=== PATIENT | female | born 1975 | race Caucasian/White ===

== ENCOUNTER 2019-03-22 01:27 | Outpatient (CLI) | payer OTHER, SELFPAY ==
--- NOTE | 2019-03-22 13:09 | DI.MAMMO_ITS ---
EXAM: MG MAMMO SCREENING 60 MIN DUR CLINICAL HISTORY: History of phyllodes tumor, breast cancer screening, Z12.39 TECHNIQUE: Mammograms were interpreted according to the usual protocol including computer analysis w [employer] CAD system, tomosynthesis and C-view imaging. COMPARISON: LEFT BREAST ULTRASOUND from 11/12/2015 Diagnostic Left Mammo from 11/12/2015 SCREENING - 60 MIN DURATION from 09/17/2017 FINDINGS: Breasts are composed of extremely dense fibroglandular tissue, breast density category D. There are m ultiple rounded masses in the left breast which may represent cysts. Cysts were noted on previous ul trasound. There are no suspicious microcalcifications. The patient is status post right mastectomy. IMPRESSION: Ultrasound is recommended for further evaluation of numerous circumscribed masses. BI-RADS Cat 0 - A ssessment Incomplete: Need additional imaging evaluation Breast Density - Category D - Extremely dense
== END 2019-03-22 01:47 ==
PROVIDERS: PCP Family Medicine; Visit Provider Obstetrics & Gynecology Gynecology
DX: Z12.31 Encounter for screening mammogram for malignant neoplasm of breast (principal); N60.12 Diffuse cystic mastopathy of left breast; Z90.11 Acquired absence of right breast and nipple; Z85.3 Personal history of malignant neoplasm of breast; R92.8 Other abnormal and inconclusive findings on diagnostic imaging of breast
CPT/HCPCS: 77063; 77067

== ENCOUNTER 2019-03-24 00:19 | Outpatient (CLI) | payer OTHER, SELFPAY ==
--- NOTE | 2019-03-24 09:24 | DI.US_ITS ---
EXAM: US BREAST LT LIMITED CLINICAL HISTORY: F/U MAMMO, MULTIPLE ROUNDED MASSES LT BREAST, CYSTS NOTED ON PREV US. TECHNIQUE: Ultrasound performed using standard protocol. COMPARISON: LEFT BREAST ULTRASOUND from 11/12/2015 FINDINGS: There are numerous cysts in the left breast, the largest of which measures 2.6 x 1.1 x 2.6 cm and is in the 12 o'clock position, 1 cm from the nipple. No mass is notified. IMPRESSION: There is nothing to suggest a malignancy. Category 2. A follow-up mammogram and if appropriate, ultra sound examination is suggested in 1 year.
== END 2019-03-24 00:39 ==
PROVIDERS: PCP Family Medicine; Visit Provider Obstetrics & Gynecology Gynecology
DX: Z12.31 Encounter for screening mammogram for malignant neoplasm of breast (principal); R92.8 Other abnormal and inconclusive findings on diagnostic imaging of breast; N60.12 Diffuse cystic mastopathy of left breast
CPT/HCPCS: 76642

== ENCOUNTER 2020-03-05 10:38 | Outpatient (REF) | payer OTHER, SELFPAY ==
--- NOTE | 2020-03-05 09:45 | PAPFT_PTH ---
PATIENT: Michelle Tam LOC: [facility] ([facility]) U#:[id number] AGE/SX: 44/F ROOM: RE03/05/[address]: FABIÁN Camilo : 1975 BED: DIS: 03/05/2020 SPEC #: [id number] RECD: 03/05/20 12:52 STATUS: KENYETTA REQ #: [id number] JAMA: 03/05/20 09:[address]: Adelita Gong DEPT: [facility] Cytology RECD BY: Ana Maria Dunne ENTERED: 03/05/20 12:53 SP TYPE: PAPFT OTHR DR: Anisha Yarbrough V Tissues: 1 - CX/ENDOCX FOR PAP SMEARS Procedures: PAP THIN PREP/UVM Screening HPV DNA PROBE Comments: [id number]
== END 2020-03-05 10:58 ==
LOC: LBN 10:38
PROVIDERS: PCP Family Medicine; Visit Provider Nurse Practitioner Family
DX: Z12.4 Encounter for screening for malignant neoplasm of cervix (principal); Z11.51 Encounter for screening for human papillomavirus (HPV); R87.618 Other abnormal cytological findings on specimens from cervix uteri
CPT/HCPCS: 88142; 87624

== ENCOUNTER 2020-03-28 01:42 | Outpatient (CLI) | payer OTHER, SELFPAY ==
--- NOTE | 2020-03-28 | DI.US_ITS ---
EXAM: MG MAMMO SCREENING 60 MIN DUR and U/S breast LT limited CLINICAL HISTORY: breast cancer screening,Z12.39,PERSONAL H/O BREAST CA. TECHNIQUE: Craniocaudal and mediolateral oblique Full Field Digital Mammography views with Computer Aided Diagnosis followed by Tomosynthesis and left breast ultrasound. COMPARISON: US US BREAST LT LIMITED from 03/28/2020 FINDINGS: Mammography/Tomosynthesis: Patient is status post right mastectomy. Masses/Architectural Distortion: There is a subtle area of architectural distortion in the upper left breast seen on the mediolateral oblique view. This was not apparent on the prior examination. Ther e are multiple obscured well-circumscribed lesions in the left breast. These appear stable and are c onsistent with cysts. Microcalcifictions: No suspicious pleomorphic-type are seen. Skin Thickening/Nipple Retraction: None. Left breast US: Echotexture: Normal appearance of the glandular tissue. Shadowing: There is a hypoechoic shadowing lesion at the 12 o'clock position of the left breast 10 cm from the nipple. This appears to correspond to the area of architectural distortion seen mammograph ically. It measures up to 1 cm in diameter. Cyst: There are multiple simple cysts seen within the left breast. Solid lesions: Please see above. Ductal dilation: None. IMPRESSION: 1. Area of architectural distortion corresponding to a 1 cm hypoechoic shadowing lesion at the 12 o'c lock position of the left breast. 2. Biopsy is recommended. 3. Findings were discussed with the patient and her PCP, Adelita Gong NP, on the date of the examin ation. BI-RADS Category 4 - Suspicious Abnormality: Biopsy should be considered Breast Density - Category D - Extremely dense The mammogram demonstrates the patient's breast tissue is dense. Dense breast tissue is very common a nd is not abnormal but dense breast tissue can make it harder to find cancer on a mammogram. Also, de nse breast tissue may increase their breast cancer risk. This information about the result of the [facility] mogram report was provided to the patient to raise their awareness. Use this report when you speak wi th the patient about their risks for breast cancer, which includes their family history. At that time , you may recommend for more screening tests (Ultrasound or MRI) as they might be useful based on the ir risk. A negative radiographic report should not delay biopsy if a dominant or clinically suspicious mass is present. Up to ten percent of cancers are not identified on mammography. A negative report may reinforce clinical impression. Adenosis and dense breasts may obscure an underlying neoplasm. False positive reports average 6 to 10%. Patient will receive a letter notifying them of these results.
== END 2020-03-28 02:02 ==
PROVIDERS: PCP Family Medicine; Visit Provider Nurse Practitioner Family
DX: Z12.39 Encounter for other screening for malignant neoplasm of breast (principal); Z85.3 Personal history of malignant neoplasm of breast; R92.8 Other abnormal and inconclusive findings on diagnostic imaging of breast
CPT/HCPCS: 76642; 77063; 77067

== ENCOUNTER 2020-03-28 02:22 | Outpatient (CLI) | payer OTHER, SELFPAY ==
[2020-03-28 09:37] LABS: Calculated LDL 107 mg/dL (<100); Cholesterol 205 mg/dL (<200); Glucose 104 mg/dL (74-106); HDL Cholesterol 86 mg/dL (40-60); Triglyceride 60 mg/dL (<150)
== END 2020-03-28 02:42 ==
PROVIDERS: PCP Family Medicine; Visit Provider Nurse Practitioner Family
DX: Z13.1 Encounter for screening for diabetes mellitus (principal); Z13.220 Encounter for screening for lipoid disorders
CPT/HCPCS: 36415; 80061; 82947

== ENCOUNTER 2020-04-02 00:48 | Outpatient (CLI) | payer OTHER, SELFPAY ==
--- NOTE | 2020-04-02 07:42 | BREAST_PTH ---
PATIENT: Michelle Tam LOC: [facility] U#:[id number] AGE/SX: 44/F ROOM: RE04/02/[address]: Hortensia Roman MD : 1975 BED: DIS: 04/02/2020 SPEC #: [id number] RECD: 04/02/20 11:46 STATUS: KENYETTA REQ #: [id number] JAMA: 04/02/20 07:[address]: Hortensia Roman DEPT: Surgical Specimen RECD BY: Ana Maria Dunne ENTERED: 04/02/20 11:46 SP TYPE: Breast OTHR DR: Anisha Yarbrough V Tissues: 1 - BREAST BX NEEDLE Procedures: GROSS AND MICRO LEVEL 4 Comments: [id number]
--- NOTE | 2020-04-02 07:50 | DI.US_ITS ---
EXAM: US NEEDLE LOCAL BREAST WO RAD CLINICAL HISTORY: H/O BREAST CA,DENSE BREASTS,LT BREAST LESION 12 OCLOCK. Left Breast. TECHNIQUE: The procedure was performed by Dr. Roman. Site: left 12 oclock 10 cm from the nipple. FINDINGS: Please see procedure note for details. COMPARISON: MG MG MAMMO SCREENING 60 MIN DUR from 03/28/2020 US US BREAST LT LIMITED from 03/28/2020
--- NOTE | 2020-04-02 08:00 | OPPNE_ITS ---
Date of Procedure: April 02, 2020 Pre-op Dx: left Breast Mass Post-op Dx: same Surgeon: Sabine Roman MD Anesthesia: Local anesthesia with 1% Lidocaine Blood loss: 2 cc Specimen: Core needle biopsy Complications: no immediate complications Procedure: After informed consent was obtained the patient was placed in a supine position. US was done of the Breast and the lesion was localized by the US tech. The skin was cleaned with alcohol and infiltrated with the above local anesthetic. The skin was then prepped. An incision was made with an 11 blade. Using a 14 gauge core needle 3 specimens were removed and placed on telfa and placed in formalin. The skin was cleaned and dried and a band aid was applied. The patient tolerated the procedure well and there were no immediate complications.
== END 2020-04-02 01:08 ==
PROVIDERS: PCP Family Medicine; Visit Provider Surgery
DX: R92.0 Mammographic microcalcification found on diagnostic imaging of breast (principal); N60.32 Fibrosclerosis of left breast
CPT/HCPCS: 19083; 88305; 76942

== ENCOUNTER 2020-07-19 02:09 | Outpatient (CLI) | payer OTHER, SELFPAY ==
--- NOTE | 2020-07-19 06:30 | DI.US_ITS ---
EXAM: US BREAST LT COMPLETE CLINICAL HISTORY: 3 MO F/U LT MASS, BX NEGATIVE,H/O RT BREAST CA,N63.20 TECHNIQUE: Ultrasound right breast performed using standard protocol. COMPARISON: US US BREAST LT LIMITED from 03/28/2020 US US NEEDLE LOCAL BREAST WO RAD from 04/02/2020 US US NEEDLE LOCAL BREAST WO RAD from 04/02/2020 FINDINGS: All 4 quadrants of the left breast were evaluated sonographically. There are numerous cysts througho ut the breast. The largest cyst is at the 12 o'clock position of the left breast and measures 4.5 x 2.9 x 1.5 cm. There is a 1.2 x 0.8 x 1.2 cm complicated cyst at the 9 o'clock position of the left b reast 1 cm from the nipple. This cyst shows thin croft with low level internal echoes. There appear s to be a fluid fluid level. No solid component or internal vascularity is seen. The area of biopsy in the 12 o'clock position of the left breast 10 cm from the nipple was evaluated. The area of conc zamzam is less prominent compared to the prior examination. No definite discrete mass persists. IMPRESSION: The area of previous biopsy is less prominent on the current examination without definite sonographic ally discrete mass. Multiple breast cysts including a complicated cyst at the 9 o'clock position of the left breast. DATA REPOSITORY:
== END 2020-07-19 02:10 | disposition home or self-care (01) ==
LOC: DI 02:09
PROVIDERS: PCP Family Medicine; Visit Provider Surgery
DX: N60.02 Solitary cyst of left breast (principal); Z85.3 Personal history of malignant neoplasm of breast
CPT/HCPCS: 76642

== ENCOUNTER → 2021-12-23 01:48 | Outpatient (CLI) | payer OTHER, SELFPAY ==
--- NOTE | 2021-12-23 09:45 | DI.MAMMO_ITS ---
Exam(s) MG MAMMO SCREENING 60 MIN DUR EXAM: MG MAMMO SCREENING 60 MIN DUR CLINICAL HISTORY: breast cancer screening Z12.39 TECHNIQUE: Bilateral full field digital CC and MLO mammographic images were obtained with 3D tomosyn thesis and utilizing computer aided detection (CAD). COMPARISON: Available for comparison. FINDINGS: The patient is status post right mastectomy. Masses/Architectural Distortion: There again seen stable multiple opacities within the left breast. Microcalcifications: No suspicious pleomorphic-type are seen. There are stable calcifications in the left breast. Skin Thickening/Nipple Retraction: None. IMPRESSION: 1. No significant interval change with no specific features of malignancy noted. 2. Unless there is more urgent need, screening mammography is recommended, as per [place] [employer] guidelines. BI-RADS Category 2 - Benign Findings Breast Density - Category D - Extremely dense Breast density category C or D implies that the patient has dense breast tissue. Dense breast tissue is very common and is not abnormal but dense breast tissue can make it harder to find cancer on a ma mmogram. Also, dense breast tissue may increase their breast cancer risk. This information about the result of the mammogram report was provided to the patient to raise their awareness. Use this report when you speak with the patient about their risks for breast cancer, which includes their family hist ory. At that time, you may recommend for more screening tests (Ultrasound or MRI) as they might be us eful based on their risk. A negative radiographic report should not delay biopsy if a dominant or clinically suspicious mass is present. Up to ten percent of cancers are not identified on mammography. A negative report may reinforce clinical impression. Adenosis and dense breasts may obscure an underlying neoplasm. False positive reports average 6 to 10%. Patient will receive a letter notifying them of these results.
== END ==
PROVIDERS: PCP Family Medicine; Visit Provider Nurse Practitioner Family
DX: Z85.3 Personal history of malignant neoplasm of breast; Z90.11 Acquired absence of right breast and nipple; Z12.31 Encounter for screening mammogram for malignant neoplasm of breast
CPT/HCPCS: 77063; 77067

== ENCOUNTER 2022-07-14 17:23 | Outpatient (REF) | payer OTHER, SELFPAY ==
[2022-07-16 14:12] LABS: Chlamydia Result Negative (Negative); GC Result Negative (Negative)
== END 2022-07-14 17:24 | disposition home or self-care (01) ==
LOC: LBN 17:23
PROVIDERS: PCP Family Medicine; Visit Provider Obstetrics & Gynecology
DX: Z11.3 Encounter for screening for infections with a predominantly sexual mode of transmission (principal)
CPT/HCPCS: 87491; 87591

== ENCOUNTER 2022-12-28 03:33 | Outpatient (CLI) | payer OTHER, SELFPAY ==
--- NOTE | 2022-12-28 07:45 | DI.MAMMO_ITS ---
Exam(s) MG MAMMO SCREENING 60 MIN DUR EXAM: MG MAMMO SCREENING 60 MIN DUR CLINICAL HISTORY: breast cancer screening,DENSE BREASTS,H/O MALIGNANT PLOOIDES TUMOR OF BREAS. TECHNIQUE: Bilateral full field digital CC and MLO mammographic images were obtained with 3D tomosyn thesis and utilizing computer aided detection (CAD). COMPARISON: There are multiple priors with the most recent from 23 December 2021 FINDINGS: Masses/Architectural Distortion: None seen. Stable areas of nodularity. Biopsy marker clip again not ed in inferior nodule. Microcalcifications: No suspicious pleomorphic-type are seen. Scattered coarse, benign-appearing calc ifications. Skin Thickening/Nipple Retraction: None. IMPRESSION: 1. No significant interval change with no specific features of malignancy noted. 2. Unless there is more urgent need, annual screening mammography is recommended, as per [place] [employer] guidelines. BI-RADS Cat 2 - Benign Findings Breast Density - Category D - extremely dense Breast Density Category D: The mammogram demonstrates the patient's breast tissue is dense. Dense topher ast tissue is very common and is not abnormal but dense breast tissue can make it harder to find canc er on a mammogram. Also, dense breast tissue may increase their breast cancer risk. This information about the result of the mammogram report was provided to the patient to raise their awareness. Use th is report when you speak with the patient about their risks for breast cancer, which includes their f amily history. At that time, you may recommend for more screening tests (Ultrasound or MRI) as they m ight be useful based on their risk. A negative radiographic report should not delay biopsy if a dominant or clinically suspicious mass is present. Up to ten percent of cancers are not identified on mammography. A negative report may reinforce clinical impression. Adenosis and dense breasts may obscure an underlying neoplasm. False positive reports average 6 to 10%.
== END 2022-12-28 03:53 ==
LOC: DI 03:33
PROVIDERS: PCP Family Medicine; Visit Provider Obstetrics & Gynecology
DX: Z12.31 Encounter for screening mammogram for malignant neoplasm of breast (principal); R92.2 Inconclusive mammogram
CPT/HCPCS: 77063; 77067

== ENCOUNTER 2023-07-09 10:23 | Day surgery (SDC) | payer OTHER, SELFPAY ==
--- NOTE | 2023-07-08 16:20 | PDOC.DSDIS_ITS ---
Date of service: 07/09/23 Time of Service: 13:16 Discharge Plan Disposition Patient Disposition: Home Condition: Good Discharge Details Reason For Visit: Screening colonoscopy Attending Provider: Evin Sanchez Primary Care Provider: Anisha Yarbrough V Home Meds and New Rx's Prescriptions: Continued Mirena 21 mcg/24 hours (8 yrs) 52 mg intrauterine device 1 device intrauterine ONCE Qty: 1 0RF Rx Instructions: as a single dose Discontinued polyethylene glycol 3350 17 gram/dose powder 17 g PO ONCE Qty: 238 0RF Rx Instructions: Take per colonoscopy instructions provided by ordering providers office bisacodyl [Dulcolax (bisacodyl)] 5 mg tablet,delayed release (DR/EC) 5 mg PO ONCE Qty: 4 0RF Rx Instructions: Take per colonoscopy instructions provided by ordering providers office Discharge Instructions Instructions: Diverticulosis (GEN), Colorectal Polyps (GEN), Diverticulosis Diet (GEN) Additional Instructions: Michelle, we were able to complete your colonoscopy today without any difficulty. Hopefully was comfortable. I did find 1 polyp, which I removed completely. Incidentally, he also have just a tiny bit of diverticulosis. D iverticula are little weak spots in the colon wall that typically accumulate as we age. They can become infected and inflamed, and when that happens, patients usually have pretty severe pain on the left side of their abdomen, or lower across the middle. During these times, patient should probably be treated with antibiotics. Hopefully, yours never bother you. Compared to most patients, you have a very low number. I have attached a little bit of information here regarding diverticulosis as well as colon and rectal polyps. Once I have the pathology results from the polyp removal, I will be in touch with my recommendations for the timing of your next colonoscopy. If you have any questions in the meantime, please do not hesitate to call at any point. 1. If tolerated, consume a soft, low fiber diet for 1-2 days. 2[address] Do not drive, drink alcohol, operate machinery, make critical decisions, or do activities that require coordination or balance for 24 hours. 3. Because air was put into your colon during the procedure, expelling air from your rectum (passing gas or farting) is normal. 4. You may not have a bowel movement for 1-3 days because of the colonoscopy prep. This is normal. 5. Go directly to the emergency room if you notice any of the following: Develop chills (warm to touch), or if you have a thermometer and your temperature is above 101 Difficulty breathing or difficultly swallowing Persistent vomiting Severe abdominal pain, other than gas cramps Severe chest pain Black, tarry stools Any bleeding ? exceeding one tablespoon 6. Call your physician if the site where your intravenous was started becomes red, swollen, painful, and warm to touch. 7. Your physician has reviewed your pre-procedure medications. Please continue to take those medications as previously ordered. You will be given specific information/education regarding any changes to your medications before leaving. Stand Alone Forms: Anesthesia Discharge Inst., Bijan Bob (DSU) Activity:: Activity as Tolerated Diet:: As Tolerated Discharge Orders Discharge Orders: Discharge Order (Routine); Ordered 07/08/23 Ordered By: Evin Sanchez DS: Diagnosis Discharge Diagnosis (1) Colon cancer screening: Status: Acute Asessment and Plan: Follow-up on polypectomy results
--- NOTE | 2023-07-08 16:21 | COLE_ITS ---
Date of service: 07/09/23 Time of Service: 13:26 Colonoscopy Report Date of procedure: 07/09/23 Pre-op diagnosis general: Screening colonoscopy Post-op diagnosis procedure note: other (Diverticulosis, colon polyp) Procedure: Colonoscopy with polypectomy Surgeon: Evin Sanchez Anesthesia Type: General:No Airway Estimated blood loss (mL): 5 Pathology: other (0.25 cm polyp at 50 cm from the anus) Complications: None Disposition: same day Indications: Michelle is a 47-year-old woman who needs her for screening colonoscopy Prep: Miralax/Dulcolax Procedure Start Time: 12:31 Procedure End Time: 12:51 Retraction Time: 6 Findings: Occasional sigmoid diverticula. 0.25 cm flat polyp at 50 cm Procedure Description: After the induction of monitored anesthetic care, and with the patient in left lateral decubitus position, I began by performing an external anorectal exam.? Perineum and skin were normal, as was the anal verge.? There was no evidence of external hemorrhoids.? Next, I performed a digital rectal exam.? I did not appr eciate any abnormal findings.? Next, I advanced a colonoscope into the rectal vault.? I performed retroflexion.? This appeared normal.? Using insufflation, I then advanced the colonoscope beyond the rectal folds and into the sigmoid colon before advancing towards the cecum.? The quality of the prep was outstanding.? There were just a few diverticula in the sigmoid colon. The scope was noted to be in the cecum by identification of the ileocecal valve and appendiceal orifice.? I then began withdrawing the colonoscope using repeated irrigation as necessary for full evaluation of the colonic mucosa. Around 50 cm from the anal verge I identified a 0.25 cm polyp. ?It appeared flat in character. ?I was able to remove this with a cold forcep polypectomy. ?I examined the site, and there was minimal bleeding. ?Once this was completed, I continued to withdraw the scope and examine the remainder of the colonic mucosa.?Once the scope was withdrawn to the level of the rectum, great care was taken to examine portions of the rectal folds.? Finally, the scope was withdrawn and the patient was brought to the same-day surgery recovery unit as the anesthetic wore off. ?The findings and instructions were shared with the patient prior to discharge. [place] Bowel Prep [place] Bowel Prep Right Colon: 3 Left Colon: 3 Transverse Colon: 3 Total Score: 9
[2023-07-09 10:48] VITALS: BP 135/85; PULSE 100; RESP 18; TEMP 36.9; O2SAT 100
[2023-07-09 11:07] VITALS: BP 142/85; PULSE 92; RESP 16; O2SAT 98
[2023-07-09] MEDS: Lactated Ringers 1,000 ML 80 ML IV (11:29)
--- NOTE | 2023-07-09 12:13 | W.ANESPRE ---
General Info Date of Service Date Performed: 07/09/23 Height: 5 ft 9 in Weight: 67.4 kg Body Mass Index (BMI): 21.9 Surgical Procedure: Operation Date: 07/09/23 10:50 Proposed Procedure Side Surgeon aletha Sanchez MD Meds Allergies and Home Medications Allergies Allergy/AdvReac Type Severity Reaction Status Date / Time Penicillins Allergy Verified 07/09/23 10:46 Home Medication Medication Instructions Recorded levonorgestrel 21 mcg/24 hours (8 1 device intrauterine ONCE #1 ea 08/10/22 yrs) 52 mg intrauterine device (Mirena) Current Visit Medications: Current Medications Generic Name Dose Route Start Last Admin Trade Name Freq PRN Reason Stop Dose Admin Hyoscyamine Sulfate 0.125 mg 07/08/23 16:22 Hyoscyamine 0.125 Mg Sl/Oral/Chew SL 08/07/23 16:21 DIRECTED PRN Ringer's Solution 1,000 mls @ 80 mls/hr 07/09/23 06:00 07/09/23 11:29 IV 07/09/23 23:59 80 mls/hr INFUSION EMMY Administration IV Miscellaneous Supplies 1 each 07/09/23 06:00 Iv Access IV 07/09/23 23:59 DIRECTED EMMY Ondansetron HCl 4 mg 07/08/23 16:22 Ondansetron 4 Mg/2 Ml Vial IVP 08/07/23 16:21 Q4H PRN PRN Nausea / Vomiting Sodium Chloride 0 ml 07/09/23 06:00 Normal Saline Flush 10 Ml Syr IV 07/09/23 23:59 PRN PRN Sodium Chloride 0 ml 07/09/23 06:00 Normal Saline 10 Ml Vial IJ 07/09/23 23:59 DIRECTED PRN Sterile Water 0 ml 07/09/23 06:00 Water,Injection,Sterile 10 Ml Vial IJ 07/09/23 23:59 DIRECTED PRN PFSH Active Problems Active Problems: Problem Status Onset Code Rosacea L71.9 Colon cancer screening Z12.11 Food allergy Z91.018 Dense breasts R92.2 Migraine headache with aura G43.109 IUD (intrauterine device) in place Z97.5 Medical History Medical History Anxiety feels stressed about job. Glaucoma H/O malignant phylloides tumor of breast 2001. S/P R mastectomy with silicon breast implant. No Chemo, no XRT. History of hypertension during and PP. Off of Lisinopril and controlling HTN with increased activity. Multiple nevi sees Dr Doty. Benign. Skin lesion of breast (09/16/17) L breast biopsy. Surgical History Surgical History Breast, Mastectomy (~2001) R breast with silicon implant. Had L breast reduction for symmetry with R reconstructed breast. Tobacco Smoking/Tobacco Use Status: Never Second hand exposure: Yes Alcohol Alcohol Intake: current Alcohol intake frequency: a few times a week Alcohol type: beer Substance Use Substance use: Never Substance use type: does not use Prental History History 1 Para Hx # Term Pregnancies 1 Multiple births Hx # Pregnancies Ectopic pregnancies AB induced Hx Number of Living Children AB spontaneous Vital Signs and Lab Results Vital Signs Most Recent Vital Signs in EMR: Most Recent Vital Signs Temp Pulse Resp BP Pulse Ox 36.9 C 92 H 16 142/85 H 98 07/09/23 10:48 07/09/23 11:07 07/09/23 11:07 07/09/23 11:07 07/09/23 11:07 Point of Care Results Point of Care Results: POC- Test(urine) Negative 07/09/23 10:59 Lab Results Blood Type / Crossmatch: No Data to Display Complete Blood Count: No Data to Display Complete Metabolic Panel: No Data to Display Liver Function Panel: No Data to Display Coagulation Panel: No Data to Display Cardiac Panel: No Data to Display Arterial Blood Gas: No Data to Display Venous Blood Gas: No Data to Display Pancreas Panel: No Data to Display Thyroid Panel: No Data to Display Infectious Disease: No Data to Display Blood Cultures: No Data to Display Toxicology Panel: No Data to Display Panel: No Data to Display Anesthesia Assessment and Plan Anesthesia History Personal History: No History of Anesthesia Complications Family History: No Family History of Anesthesia Complications Exercise Tolerance Exercise Tolerance: Metabolic Equivalents>4 Pertinent Negatives Pertinent Negatives: No Symptoms of GERD, No Major Cardiovascular Symptoms or Complaints and No Major Pulmonary Symptoms or Complaints Cardiac & Pulmonary Exam Cardiac Exam: Normal S1/S2 Heart Sounds Pulmonary Exam: Clear Bilateral Breath Sounds Implantable Cardiac Device Does patient have a Pacemaker or an ICD?: No Airway Exam Known Difficult Airway: No Mallampati Class: 1 Mouth Opening: Normal (> 3cm) Thyromental Distance: Greater than 3 cm Neck Range of Motion: Full ROM Neck Circumference: Normal Teeth Condition: Normal Dentition ASA Classification ASA Score: ASA 2 Emergency Case?: No NPO Status NPO Status: NPO Clears >2 hours, Solids >8 hours Status Status: Negative HCG Anesthesia Plan Resuscitation Status: Full Code Anesthesia Technique: General Anesthesia Airway Planned: Natural Airway Monitors Used: Standard Monitors
[2023-07-09 12:15] VITALS: BMI 21.9
--- NOTE | 2023-07-09 12:34 | BOWEL_PTH ---
PATIENT: Michelle Tam LOC: [facility] U#:[id number] AGE/SX: 47/F ROOM: RE07/09/[address]: Evin Sanchez MD : 1975 BED: DIS: 07/09/2023 SPEC #: [id number] RECD: 07/09/23 17:20 STATUS: KENYETTA REQ #: [id number] JAMA: 07/09/23 12:[address]: Evin Sanchez DEPT: Surgical Specimen RECD BY: Ana Maria Dunne ENTERED: 07/09/23 17:21 SP TYPE: Bowel OTHR DR: Anisha Yarbrough V Tissues: 1 - BIOPSY BOWEL Procedures: GROSS AND MICRO LEVEL 4 Comments: [id number]
[2023-07-09 13:00] VITALS: BP 78/68; PULSE 80; RESP 16; TEMP 36.5; O2SAT 98
[2023-07-09 13:19] VITALS: BP 109/75; PULSE 85; RESP 16; TEMP 36.5; O2SAT 100
[2023-07-09 13:26] VITALS: BP 119/71; PULSE 79; RESP 16; TEMP 36.5; O2SAT 100
--- NOTE | 2023-07-09 14:05 | W.ANESPOSTOP ---
Postoperative Evaluation Date, Time and Location Date Performed: 07/09/23 Time Performed: 13:45 Patient Location: Day Surgery Unit Vital Signs Most Recent Imported Vital Signs: Most Recent Vital Signs Temp Pulse Resp BP Pulse Ox 36.5 C 79 16 119/71 100 07/09/23 13:26 07/09/23 13:26 07/09/23 13:07/09/23 13:07/09/23 13:26 Pain Score Most Recent Pain Score: Most Recent Pain Score Pain Level 0 07/09/23 13:26 Assessment Mental Status: Awake (Alert & Oriented to Patient Baseline) Airway and Respiratory Function: Patent airway with normal (patient baseline) respiratory exam Cardiovascular Function: Hemodynamically Stable Hydration Status: Adequately Hydrated Nausea & Vomiting: No Nausea or Vomiting Pain: Pt. Denies Any Pain Peripheral Nerve Block: Patient did not receive a nerve block
== END 2023-07-09 13:55 | disposition home or self-care (01) ==
LOC: SUR 10:24
PROVIDERS: PCP Family Medicine; Visit Provider Surgery
PROC: 0DJD8ZZ Inspection of Lower Intestinal Tract, Via Natural or Artificial Opening Endoscopic (ICD-10-PCS; CPT 45378; principal; 2023-07-09 10:45)
DX: Z12.11 Encounter for screening for malignant neoplasm of colon (principal); D12.5 Benign neoplasm of sigmoid colon; K57.30 Diverticulosis of large intestine without perforation or abscess without bleeding
CPT/HCPCS: 45380; 81025; 88305; J2704

== ENCOUNTER → 2023-12-31 00:22 | Outpatient (CLI) | payer OTHER, SELFPAY ==
--- NOTE | 2023-12-31 | DI.US_ITS ---
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 TECHNIQUE: LEFT BREAST full field digital CC and MLO mammographic images were obtained with 3D tomos ynthesis and utilizing computer aided detection (CAD). Also performed spot compression view of nodular density in left breast. COMPLETE LEFT BREAST ULTRASOUND performed including all 4 quadrants well as the retroareolar region. COMPARISON: Prior mammograms were reviewed. Prior ultrasound reviewed 12/05/2020. This patient has had prior right mastectomy for malignant phyllodes tumor. She also underwent ultras ound-guided core biopsy of a finding at the peripheral aspect 12 o'clock position of the left breast which was negative for malignancy. FINDINGS: LEFT BREAST MAMMOGRAM: Fibroglandular tissue is again noted be dense and there are nodular densities again noted. Spot comp ression view performed and reveals a dominant nodular densities approximately 12 o'clock position, me asuring approximately 4.9 x 4 cm on the mammogram. There benign-appearing microcalcifications in left breast noted. There are no malignant-appearing microcalcification groups. There is no significant new architectural distortion nor skin thickening-retraction. Proceeded with ultrasound.. COMPLETE LEFT BREAST ULTRASOUND: There are multiple cysts in the left breast, with the dominant cyst located at 12 o'clock position wi th maximum measurement 5 cm, this corresponding to the finding on the mammogram. This is a simple cy st without solid internal components. Smaller cysts and microcysts are seen at the 1 o'clock positio n. Also at 1 o'clock position there is a oval 8 x 6 mm nodule with increased through transmission and so me internal echoes, probably hemorrhagic cyst. Multiple microcysts are seen at 2 o'clock position At the 3 o'clock position there is a small 4 x 3 mm finding which is probably a hemorrhagic microcyst . At the 5 o'clock position there is a 1.6 cm cyst. At the 6 o'clock position there is a lobulated wider than taller solid nodule which exhibits maximum measurement 2 cm by 0.7 cm and is probably a fibroadenoma. This appears to have slightly increased i n size from prior measurement of 2020. At the 7 o'clock position and 8 o'clock position there are microcysts. At the 9 o'clock position there is a 7 x 6 mm finding which is probably a hemorrhagic microcyst. Scanning of the left axilla is negative for significant adenopathy. IMPRESSION: In addition to multiple cysts ranging up to 5 cm size (12 o'clock position) there also other less sim ple findings including what is probably a fibroadenoma at the 6 o'clock position measuring 2.0 x 0.7 cm, a probable hemorrhagic microcysts at 3 o'clock position, and another finding at 9 o'clock positio n which is probably also hemorrhagic microcyst. Also 8 x 6 mm nodule at the 1 o'clock position, poss ibly hemorrhagic microcyst versus fibroadenoma. Appropriate follow-up, as discussed by myself with the patient today, is repeat left breast ultrasoun d in 6 months to ensure stability of the findings at the 6 o'clock position, 1 o'clock position, 3 o' clock position, and 9 o'clock position These findings are relatively hidden subjacent to her dense fibroglandular tissue on mammography. BI-RADS Category 3 - 6 month - Probably Benign Finding: Recommend follow-up mammography in 6 months Breast Density - Category C - Heterogeneously dense Breast density Category C or D implies that the patient has dense breast tissue. Dense breast tissue can make it harder to find cancer on a mammogram. Dense breast tissue is also associated with an incr eased risk of breast cancer. This information about the result of the mammogram report was provided to the patient to raise their awareness. Use this report when you speak with the patient about their risks for breast cancer, which includes their family history. At that time, you may recommend additional screening tests (Ultrasoun d or MRI) as these tests may add significant information. A negative radiographic report should not delay biopsy if a dominant or clinically suspicious mass is present. Up to ten percent of cancers are not identified on mammography. A negative report may reinforce clinical impression. Adenosis and dense breasts may obscure an underlying neoplasm. False positive reports average 6 to 10%. Patient will receive a letter notifying them of these results.
--- OUTSIDE RECORDS SUMMARY | 2023-12-31 00:23 | XMS_ITS | Encounter Summary ---
[facility] [place] [address] Care Team Providers Care Street Contractor Name Role Phone Vernon Bettina Hogan APRN Primary Care Provider [phone] Encounter Details Date Type Department Care Team (Late st Contact Info) Description 06/24/2021 11:00 AM EST Office Visit Dermatology at [address] [address] Robby Doty MD [address] [facility] [place], [place] [id number] Rosacea; Nevus; Seborrheic keratosis Social History Tobacco Use Types Packs/Day Years Used Date Smoking Tobacco: Never Assessed Sex and Gender Information Value Date Recorded Sex Assigned at Not on file Gender Identity Not on file Sexual Orientation Not on file documented as of this encounter Progress Notes * Robby Doty MD - 06/24/2021 11:00 AM EST Problem: Skin checkup Michelle follows up after last being seen some 5.5 years ago. She has been doing well. She is concerned about some facial rosacea monitor for general skin checkup. Physical examination reveals a pleasant 45-year-old woman who has a benign examination of the face the neck the chest back hands arms forearms thighs and calves. She has an irritated nevus on the midcentral back underneath her bra strap. She is an irritated seborrheic keratosis on her right upper flank. She is some patchy residual form erythema of the bilateral malar cheeks a little bit on her chin and forehead. She does not have any papular rosacea. Assessment and plan: Benign skin examination 1. Patient reassured about her benign skin examination 2. Return to clinic as needed Irritated seborrheic keratosis right flank 1. Could consider LN2 for removal of this Irritated nevus mid central back 1. After obtaining informed patient consent, the site was anesthetized and a shave biopsy was performed. 2. Triple antibiotic ointment and bandage placed. 3. Wound care instructions and supplies given 4. We will notify patient of her biopsy results in 1 week. Rosacea 1. Patient has tried MetroGel in the past without benefit and in fact it seemed to irritate her skin and make it worse 2. She likes Aquaphor topically, and I would recommend a trial of vitamin C serum applying twice daily to help her with this. She knows this will be an ongoing treatment. 3. Continue her sensitive skin care precautions she follows because of her rosacea. She tries to avoid sugar which seems to make it worse. documented in this encounter Plan of Treatment Not on file documented as of this encounter Visit Diagnoses Diagnosis Rosacea Nevus Benign neoplasm of skin, site unspecified Seborrheic keratosis Other seborrheic keratosis documented in this encounter Care Teams Street Contractor Relationship Specialty Start Date End Date Bettina Junior APRN [address] [place] [address] PCP - General 05/06/10 07/14/22 documented as of this encounter
--- OUTSIDE RECORDS SUMMARY | 2023-12-31 00:23 | XMS_ITS | Encounter Summary ---
[place] [address] Care Team Providers Care Fork Lift Technician Name Role Phone Bettina Junior APRN Primary Care Provider [phone] Encounter Details Date Type Department Care Team (Late st Contact Info) Description 12/18/2020 Telephone Hematology [place] [address] Hazel Brandt Social History Tobacco Use Types Packs/Day Years Used Date Smoking Tobacco: Never Assessed Sex and Gender Information Value Date Recorded Sex Assigned at Not on file Gender Identity Not on file Sexual Orientation Not on file documented as of this encounter Miscellaneous Notes * Telephone Encounter - Hazel Brandt - 12/18/2020 8:00 AM EDT Michelle Tam 1975 [id number] Referring provider: Hortensia Roman Date of Referral: 12/13/20 Please review outside breast imaging dated: 12/05/20 Reason for exam and clinical history:left breast cyst vs fibroadenoma Category:4 Questions to be answered:bx More imaging Sending Institution: [facility] Patient would like treatment at:[facility] [place] Call pt at: Mobile Not on file. documented in this encounter Plan of Treatment Not on file documented as of this encounter Visit Diagnoses Not on filedocumented in this encounter Care Teams Fork Lift Technician Relationship Specialty Start Date End Date Bettina Junior APRN [address] [place] [address] PCP - General 05/06/10 07/14/22 documented as of this encounter
--- OUTSIDE RECORDS SUMMARY | 2023-12-31 00:23 | XMS_ITS | Encounter Summary ---
[place] [address] Care Team Providers Care Assembly Press Operator Name Role Phone Bettina Junior APRN Primary Care Provider [phone] Reason for Visit * (Routine) - Closed Specialty Diagnoses / Procedures Referred By Contac t Referred To Contact Radiology Diagnoses Left breast mass Procedures Request for 2nd read Mammo Sabine Roman MD [address] [place] [address] Referral ID Status Reason Start Date Expiration Date Visits Re quested Visits Authorized [id number] Closed 12/18/2020 12/18/2021 1 1 Encounter Details Date Type Department Care Team (Latest Contact Info) Description 12/18/2020 8:45 AM EDT Ancillary Procedure [place] [address] Sabine Roman MD [address] [place], [place] [id number] Left breast mass Social History Tobacco Use Types Packs/Day Years Used Date Smoking Tobacco: Never Assessed Sex and Gender Information Value Date Recorded Sex Assigned at Not on file Gender Identity Not on file Sexual Orientation Not on file documented as of this encounter Plan of Treatment Not on file documented as of this encounter Procedures Procedure Name Priority Date/Time Associated Diagnosis Comments REQUEST FOR 2ND READ MAMMO Routine 12/18/2020 8:44 AM EDT Left breast mass documented in this encounter Results * Request for 2nd read Mammo (12/18/2020 8:44 AM EDT) Anatomical Region Laterality Modality SO Impressions 12/18/2020 9:14 AM EDT Agree with recommendation for ultrasound-guided core biopsy of a previously undocumented new solid mass 1.6 cm maximal dimension left breast 4:00 radian 3 cm from the nipple. Our facility will coordinate this follow-up with the patient. BI-RADS Category 4: Suspicious Finding - Biopsy Should Be Considered Please note: The interpretation of the [facility] Breast Imaging Radiologist subspecialist may differ from the original radiologist's interpretation. This is usually not due to a deficiency of the original interpreting radiologist, rather due to the greater skill level afforded by sub-specialization in the field and/or reasonable variations in interpretations. If you have a concern regarding the [facility] interpretation you may contact the [facility] Breast Painter Assistant Office at . Thank you for letting us participate in the care of this patient. ??If you are a health care provider and have any questions regarding this report, please contact the number below. ??For patients who have questions please contact the health career development director that requested your imaging first. ? Narrative 12/18/2020 9:14 AM EDT INTERPRETATION OF OUTSIDE BREAST IMAGING I have been asked to consult on this patient by Dr. Sabine Roman because he/she believes a review of this study may change or alter the care of this patient. STUDIES FROM: [facility] DATES: 12/06/2019 left breast ultrasound CLINICAL HISTORY: LEFT BREAST CYST VS FIBROADENOMA. ? BX ? MORE IMAGING; Sending Institution [facility]; Date of exam [id number]; I believe a reinterpretation of this exam may alter care of Patient. Yes; LEFT BREAST CYST VS FIBROADENOMA. The ultrasound report provides a history of right mastectomy for phyllodes tumor. Palpable lump at the 12:00 radian. Instead of a directed ultrasound a whole breast ultrasound was performed. COMPARISONS: 07/19/2019, 03/28/2020, 04/02/2020, 03/22/2020, 03/24/2020, 09/17/2017, 11/12/2015 FINDINGS: Please note: Breast ultrasound is cluster bore operator dependent. Complete assessment of the breast tissue is not possible through static images or cine loops. Because breast ultrasound is a dynamic process the interpretive value of outside images is limited. There is a sonographically benign 3.2 cm benign simple cyst documented at the left breast 12:00 radian corresponding to the palpable lump. Additionally, multiple sonographically benign cysts are identified throughout the breast. There is an exception, however, where there is a homogeneously hypoechoic parallel mass with slightly microlobulated margins at the left breast 4:00 radian 3 cm from the nipple measuring 1.6 cm in maximal diameter. This does not appear to be documented on any prior examinations and is considered a new finding sonographically. Procedure Note aLcy Romero MD - 12/18/2020 INTERPRETATION OF OUTSIDE BREAST IMAGING I have been asked to consult on this patient by Dr. Sabine Thompsonause he/she believes a review of this study may change or alter the care ofthis patient. STUDIES FROM: [facility] DATES: 12/06/2019 left breast ultrasound CLINICAL HISTORY: LEFT BREAST CYST VS FIBROADENOMA. ? BX ? MORE IMAGING;Sending Institution [facility]; Date of exam [id number]; Ibelieve a reinterpretation of this exam may alter care of Patient. Yes; LEFTBREAST CYST VS FIBROADENOMA. The ultrasound report provides a history of right mastectomy forphyllodes tumor. Palpable lump at the 12:00 radian. Instead of a directed ultrasounda whole breast ultrasound was performed. COMPARISONS: 07/19/2019, 03/28/2020, 04/02/2020, 03/22/2020, 03/24/2020, 09/17/2017,11/12/2015 FINDINGS: Please note: Breast ultrasound is cluster bore operator dependent. Complete assessmentof the breast tissue is not possible through static images or cine loops.Because breast ultrasound is a dynamic process the interpretive value of outsideimages is limited. There is a sonographically benign 3.2 cm benign simple cyst documented atthe left breast 12:00 radian corresponding to the palpable lump.Additionally, multiple sonographically benign cysts are identified throughout thebreast. There is an exception, however, where there is a homogeneouslyhypoechoic parallel mass with slightly microlobulated margins at the left breast4:00 radian 3 cm from the nipple measuring 1.6 cm in maximal diameter. Thisdoes not appear to be documented on any prior examinations and is considered anew finding sonographically. IMPRESSION Agree with recommendation for ultrasound-guided core biopsy of apreviously undocumented new solid mass 1.6 cm maximal dimension left breast 4:00radian 3 cm from the nipple. Our facility will coordinate this follow-up with the patient. BI-RADS Category 4: Suspicious Finding - Biopsy Should Be Considered Please note: The interpretation of the [facility] BreastImaging Radiologist subspecialist may differ from the original radiologist's interpretation. This is usually not due to a deficiency of the original interpreting radiologist, rather due to the greater skill level affordedby sub-specialization in the field and/or reasonable variations ininterpretations. If you have a concern regarding the [facility] interpretation [facility] at . Thank you for letting us participate in the care of this patient. If youare a health care provider and have any questions regarding this report,please contact the number below. For patients who have questions please contactthe health career development director that requested your imaging first. Sabine Valiente MD IMG OUTSIDE I NTERPRETATION ORDERABLES documented in this encounter Visit Diagnoses Diagnosis Left breast mass Lump or mass in breast documented in this encounter Care Teams Assembly Press Operator Relationship Specialty Start Date End Date Bettina Junior APRN [address] [place] [address] PCP - General 05/06/10 07/14/22 documented as of this encounter
--- OUTSIDE RECORDS SUMMARY | 2023-12-31 00:23 | XMS_ITS | Encounter Summary ---
[place] [address] Care Team Providers Care Bladder Trimmer Name Role Phone Anisha Yarbrough MD Primary Care Provider [phone] Reason for Referral * Allergy Testing (Routine) - Closed Specialty Diagnoses / Procedures Referred By Contuma t Referred To Contact Allergy Diagnoses Allergy to other foods Fabienne Beach DO [address] [place] [address] [place] [address] [facility] [address] [place] [address] Referral ID Status Reason Start Date Expiration Date V isits Requested Visits Authorized [id number] Closed Consult, Test & Treat PCP Updated and/or Approved 07/15/2022 07/15/2023 6 6 Encounter Details Date Type Department Care Team (Late st Contact Info) Description 07/15/2022 Transcribe Orders eDH Incoming Referrals [phone] Fabienne Beach DO [address] [place] [address] [address] [place] [phone] Allergy to other foods Social History Tobacco Use Types Packs/Day Years Used Date Smoking Tobacco: Never Assessed Sex and Gender Information Value Date Recorded Sex Assigned at Not on file Gender Identity Not on file Sexual Orientation Not on file documented as of this encounter Plan of Treatment Scheduled Referrals Name Type Priority Associated Diagnoses Orde r Schedule Referral to Allergy Outpatient Referral Routine Allergy to other foods Ordered: 07/15/2022 documented as of this encounter Visit Diagnoses Diagnosis Allergy to other foods documented in this encounter Care Teams Bladder Trimmer Relationship Specialty Start Date End Date Anisha Yarbrough MD [address] [place] [address] PCP - General Family Medicine 07/15/22 documented as of this encounter
--- OUTSIDE RECORDS SUMMARY | 2023-12-31 00:23 | XMS_ITS | Clinical Summary ---
[place] [address] Care Team Providers Care Rn Team Leader Name Role Phone Anisha Yarbrough MD Primary Care Provider [phone] Allergies Active Allergy Reactions Criticality Noted Date Comments Adhesive Tape Medium CIS - Localized Reaction Penicillins Other (See Comments) High 06/24/2021 Unsure or reaction Medications No known medications Active Problems No known active problems Social History Tobacco Use Types Packs/Day Years Used Date Smoking Tobacco: Never Assessed Sex and Gender Information Value Date Recorded Sex Assigned at Not on file Gender Identity Not on file Sexual Orientation Not on file Plan of Treatment Health Maintenance Due Date Last Done Comments CT Colonography 1973 Colonoscopy 1973 Colorectal Cancer Screening 1973 FIT DNA 1973 FIT 1973 Sigmoidoscopy (10 year) with FIT yearly 1973 Sigmoidoscopy 1973 HIV screen 09/30/1991 Hepatitis C Screening 09/30/1991 Hepatitis B vaccine (0-59 yrs) (1) 1992 Tdap adult 1992 Tetanus vaccine 1992 HPV test 09/30/2003 PAP Smear 09/30/2003 Breast Cancer Share Decision Needed 2013 Breast Cancer screening 2013 Covid-19 Vaccine (2022- season) 2023 Zoster vaccine (1 of 2) 09/30/2023 Influenza (Flu) vaccine (1 o f 1 - Influenza standard series) 02/13/2024 Medical Devices Implanted Type Area Surgical Elastic Knitter Hand Frame Device Identifier Shelf Expiration Date Model / Serial / Lot Breast Clip-12/20/2020 Implanted:07/ 02/2021 by Lacy Romero MD (Quantity not on file) Breast Clip Left: Breast Bard - 0614 [employer] ULTRACOR BREAST TISSUE MARKER ULTRASOUND ENHANCED CHANDU / / [id number] Description:CHANDU Care Teams Rn Team Leader Relationship Specialty Start Date End Date Anisha Yarbrough MD [address] [place], [place] [address] PCP - General Family Medicine 07/15/22
--- OUTSIDE RECORDS SUMMARY | 2023-12-31 00:23 | XMS_ITS | Encounter Summary ---
[facility] Organization [facility] [place] [address] Care Team Providers Care Bulk System Operator Name Role Phone Bettina Junior APRN Primary Care Provider [phone] Encounter Details Date Type Department Care Team (Late st Contact Info) Description 07/02/2021 Telephone Dermatology at [address] [address] Emily Mcdonald RN Social History Tobacco Use Types Packs/Day Years Used Date Smoking Tobacco: Never Assessed Sex and Gender Information Value Date Recorded Sex Assigned at Not on file Gender Identity Not on file Sexual Orientation Not on file documented as of this encounter Miscellaneous Notes * Telephone Encounter - Emily Mcdonald RN - 07/02/2021 4:31 PM EST Pt had a shave Biopsy on 06/24/2021. Pt called with the results. Mid Central back shave was a intradermal nevus. No further treatment is needed. Pt stated that she understood. Pt to return to the clinic as needed. Pt stated no questions or concerns at this time. documented in this encounter Plan of Treatment Not on file documented as of this encounter Visit Diagnoses Not on filedocumented in this encounter Care Teams Bulk System Operator Relationship Specialty Start Date End Date Bettina Junior APRN [address] [place] [address] PCP - General 05/06/10 07/14/22 documented as of this encounter
--- OUTSIDE RECORDS SUMMARY | 2023-12-31 00:23 | XMS_ITS | Encounter Summary ---
[place] [address] Care Team Providers Care Teaching Manager Name Role Phone Bettina Junior APRN Primary Care Provider +1 [phone] Encounter Details Date Type Department Care Team (Latest Contact Info) Description 12/20/2020 12:37 PM EDT Hospital En[place] [phone] Lacy Romero MD [facility] [address] [place] [address] Abnormal finding on breast imaging Discharge Disposition: Home Social History Tobacco Use Types Packs/Day Years Used Date Smoking Tobacco: Never Assessed Sex and Gender Information Value Date Recorded Sex Assigned at Not on file Gender Identity Not on file Sexual Orientation Not on file documented as of this encounter Medications at Time of Discharge Medication Sig Dispensed Refills Start Date End Date citalopram (CELEXA) 20 mg tablet 09/20/19 04 06/24/2021 documented as of this encounter Plan of Treatment Not on file documented as of this encounter Procedures Procedure Name Priority Date/Time Associated Diagnosis Comments MAMMO US BIOPSY LEFT Routine 12/20/2020 1:16 PM EDT Abnormal finding on breast imaging SPECIMEN TO PATHOLOGY Routine 12/20/2020 1:11 PM EDT SURGICAL PATHOLOGY REPORT Routine 12/20/2020 1:05 PM EDT documented in this encounter Results * Mammo Us Biopsy Left (12/20/2020 1:16 PM EDT) Anatomical Region Laterality Modality Breast Left Mammography Impressions 12/25/2020 8:02 AM EDT Concordant benign result RECOMMENDATION: Routine screening. I phoned these results to the patient on 12/24/2020. REVIEW PATH CONFERENCE?: No Thank you for letting us participate in the care of this patient. ??If you are a health care provider and have any questions regarding this report, please contact the number below. ??For patients who have questions please contact the health senior caregiver that requested your imaging first. ? Narrative 12/25/2020 8:02 AM EDT LEFT BREAST ULTRASOUND GUIDED AUTOMATED CORE BIOPSY CLINICAL HISTORY: abnormal finding. Mass 4:00 radian 3 cm from the nipple measuring 1.5 cm PROCEDURAL DETAILS: Informed consent was obtained and a timeout procedure was performed per protocol. Using local anesthetic (less than 5 cc of 1% lidocaine), sterile technique, and ultrasound guidance the lesion in the left breast was localized and sampled. Multiple satisfactory core biopsy specimens were obtained using a 14-gauge automated device. A [employer] [place] 14G marker clip was placed. The clip was in satisfactory position both sonographically and at follow-up cranio-caudal and true lateral digital mammography. COMPLICATIONS: None. PROCEDURAL ATTESTATION: Resident: None I performed the procedure without a resident. IMAGING DIFFERENTIAL DIAGNOSIS: Normal breast tissue, benign fibroadenoma, and papilloma, invasive carcinoma PATHOLOGIC DIAGNOSIS: Fibroadenoma Lacy Romero MD IMG MAMMO ORDERABL ES * Specimen to Pathology (12/20/2020 1:11 PM EDT) AP Specimen 12/20/2020 1:11 PM EDT 12/20/2020 1:11 PM EDT Narrative [facility] - 12/20/2020 1:11 PM EDT Specimen requisition ordered. ??Separate Pathology report to follow Lacy Romero MD PATHOLOGY/CYTOLOGY ORDERABLES [facility] [place] [address] * Surgical Pathology Report (12/20/2020 1:05 PM EDT) Surgical Pathology Report [id number] ? Location: 3L The signing pathologist has (i) examined the relevant preparation(s) for the specimen(s) and (ii) rendered or confirmed the diagnosis(es). . ?Surgical Pathology DIAGNOSIS Needle biopsies: ?Left breast Diagnosis: ?Fibroadenoma Microcalcificat ions: ??N/A Electronically signed by: ?Kasey PETERS, Senthil Flynn Verified: ??12/23/2020 9:27 ?? Pathologist Performed at: ??-[facility] Dept. of Pathology, [place], [place] SPECIMEN(S) SUBMITTED A - LEFT BREAST U/S BX 14G, biopsy (3) Report to: Bettina Junior CLINICAL INFORMATION Mass. FA, IDC SPECIMEN PROCESSING A - Labeled/Fixativ e: Left breast US biopsy 14 G, formalin. Quantity/Size: Three, from 1.4 x 0.1 cm to 2.3 x 0.1 cm Tissue Description: Main-yellow fibrofatty needle core biopsies. Sections/Proces sing: Entirely submitted in 2 cassettes labeled A1-A2. Ischemic Time: Less than one minute ??pps [facility] 12/20/2020 1:05 PM EDT Lacy Romero MD PATHOLOGY/CYTOLOGY ORDERABLES [facility] [place] [address] documented in this encounter Visit Diagnoses Diagnosis Abnormal finding on breast imaging Other (abnormal) findings on radiological examination of breast documented in this encounter Administered Medications Inactive Administered Medications - up to 3 most recent administrations Medication Order MAR Action Action Date Dose Rate Site lidocaine (Xylocaine) 1% (10 mg/mL) injection 10 mg 10 mg, Intradermal, ONCE, 1 dose, On Wed12/20/20 at 1300, Routine Given 12/20/2020 1:00 PM EDT 10 mg documented in this encounter Care Teams Teaching Manager Relationship Specialty Start Date End Date Bettina Junior APRN [address] [facility] [address] PCP - General 05/06/10 07/14/22 documented as of this encounter
--- OUTSIDE RECORDS SUMMARY | 2023-12-31 00:23 | XMS_ITS | Encounter Summary ---
Author Organization [facility] [place] [address] Care Team Providers Care Marketing Production Specialist Name Role Phone Bettina Junior APRN Primary Care Provider [phone] [phone] Encounter Details Date Type Department Care Team (Late st Contact Info) Description 04/02/2020 Ancillary Procedure [place] [phone] Bettina Junior APRN [address] [place], [place] [id number] Social History Tobacco Use Types Packs/Day Years Used Date Smoking Tobacco: Never Assessed Sex and Gender Information Value Date Recorded Sex Assigned at Not on file Gender Identity Not on file Sexual Orientation Not on file documented as of this encounter Plan of Treatment Not on file documented as of this encounter Procedures Procedure Name Priority Date/Time Associated Diagnosis Comments FILM LIBRARY-STORAGE ONLY US BREAST Routine 04/02/2020 12:00 AM EDT documented in this encounter Results * Film Library Storage Only US Breast (04/02/2020 12:00 AM EDT) Narrative A[facility]EN - 12/15/2020 9:27 AM EDT This exam is auto-finalizing. It's purpose is for storage only. Bettina Junior APRN IMG FILM LIBRARY ORDERABLES [place], [place] documented in this encounter Visit Diagnoses Not on filedocumented in this encounter Care Teams Marketing Production Specialist Relationship Specialty Start Date End Date Bettina Junior APRN [address] [place] [address] PCP - General 05/06/10 07/14/22 documented as of this encounter
--- OUTSIDE RECORDS SUMMARY | 2023-12-31 00:23 | XMS_ITS | Encounter Summary ---
Author [facility] [place] [address] Care Team Providers Care Shotgun Shell Loading Machine Operator Name Role Phone Bettina Junior APRN Primary Care Provider [phone] [phone] Encounter Details Date Type Department Care Team (Late st Contact Info) Description 12/05/2020 Ancillary Procedure [place] [phone] Bettina Junior APRN [address] [place], [place] [id number] Social History Tobacco Use Types Packs/Day Years [...] Comments FILM LIBRARY-STORAGE ONLY US BREAST Routine 12/05/2020 12:00 AM EDT documented in this encounter Results * Film Library Storage Only US Breast (12/05/2020 12:00 AM EDT) Narrative [facility]EN - 12/15/2020 9:26 AM EDT This exam is auto-finalizing. It's purpose is for storage only. Bettina Junior APRN IMG FILM LIBRARY ORDERABLES [place], [place] documented in this encounter Visit Diagnoses Not on filedocumented in this encounter Care Teams Shotgun Shell Loading Machine Operator Relationship Specialty Start Date End Date Bettina Junior APRN [address] [place] [address] PCP - General 05/06/10 07/14/22 documented as of this encounter
--- OUTSIDE RECORDS SUMMARY | 2023-12-31 00:23 | XMS_ITS | Encounter Summary ---
[place] [address] Care Team Providers Care Medical Services Coordinator Name Role Phone Bettina Junior APRN Primary Care Provider [phone] [phone] Encounter Details Date Type Department Care Team (Late st Contact Info) Description 07/19/2020 Ancillary Procedure [place] [phone] Bettina Junior APRN [address] [place], [place] [id number] Social History Tobacco Use Types Packs/Day Years [...] Comments FILM LIBRARY-STORAGE ONLY US BREAST Routine 07/19/2020 12:00 AM EST documented in this encounter Results * Film Library Storage Only US Breast (07/19/2020 12:00 AM EST) Narrative AIDEN - 12/15/2020 9:26 AM EDT This exam is auto-finalizing. It's purpose is for storage only. Bettina Junior APRN IMG FILM LIBRARY ORDERABLES [place], [place] documented in this encounter Visit Diagnoses Not on filedocumented in this encounter Care Teams Medical Services Coordinator Relationship Specialty Start Date End Date Bettina Junior APRN [address] [place] [address] PCP - General 05/06/10 07/14/22 documented as of this encounter
--- OUTSIDE RECORDS SUMMARY | 2023-12-31 00:23 | XMS_ITS | Encounter Summary ---
Author Organization [facility] [place] [address] Care Team Providers Care Consumer Safety Inspector Name Role Phone Vernon Bettina Hogan APRN Primary Care Provider [phone] [phone] Encounter Details Date Type Department Care Team (Latest Contact Info) Description 12/20/2020 12:38 PM EDT - 12/20/2020 11:59 PM EDT Hospital En[place] [address] Lacy Romero MD [facility] [place] [address] Abnormal finding on breast imaging Discharge Disposition: [...] Name Priority Date/Time Associated Diagnosis Comments MAMMO DIAGNOSTIC WITHOUT CAD LEFT Routine 12/20/2020 1:25 PM EDT Abnormal finding on breast imaging documented in this encounter Results * Mammo Diagnostic Without Cad Left (12/20/2020 1:25 PM EDT) Anatomical Region Laterality Modality Breast [...] who have questions please contact the health childcare teacher that requested your imaging first. ? Electronically signed by: Lacy Romero MD, [facility] ([phone]), at 12/25/2020 8:02 AM Narrative 12/25/2020 8:02 AM EDT LEFT BREAST [...] obtained using a 14-gauge automated device. A [employer] 14G marker clip was placed. The clip was in satisfactory position both sonographically and at follow-up cranio-caudal and true lateral digital mammography. COMPLICATIONS: None. PROCEDURAL ATTESTATION: Resident: None I performed the procedure without a resident. IMAGING DIFFERENTIAL DIAGNOSIS: Normal breast tissue, benign fibroadenoma, and papilloma, invasive carcinoma PATHOLOGIC DIAGNOSIS: Fibroadenoma Lacy Romero MD IMG MAMMO ORDERABL ES documented in this encounter Visit Diagnoses Diagnosis Abnormal finding on breast imaging Other (abnormal) findings on radiological examination of breast documented in this encounter Care Teams Consumer Safety Inspector Relationship Specialty Start Date End Date Bettina Junior, ROPE MAKER [address] [place] [address] PCP - General 05/06/10 07/14/22 documented as of this encounter
--- OUTSIDE RECORDS SUMMARY | 2023-12-31 00:23 | XMS_ITS | Encounter Summary ---
Author Organization [facility] [place] [address] Care Team Providers Care Display Maker Name Role Phone Vernon Bettina Hogan APRN Primary Care Provider [phone] [phone] Encounter Details Date Type Department Care Team (Late st Contact Info) Description 12/20/2020 Notes [place] [phone] Terrance Mendez MD [facility] DR [place] [address] Social History Tobacco Use Types Packs/Day Years Used Date Smoking Tobacco: Never Assessed Sex and Gender Information Value Date Recorded Sex Assigned at Not on file Gender Identity Not on file Sexual Orientation Not on file documented as of this encounter Progress Notes * Terrance Mendez MD - 12/20/2020 11:40 AM EDT Pre-procedure note for needle breast biopsies performed in radiology. Procedure date: Today Procedure type: left breast ultrasound guided biopsy Allergies: Adhesive tape Medications: Current Outpatient Medications: ??? citalopram (CELEXA) 20 mg tablet, , Disp: , Rfl: Anticoagulation status: none stopped on: N/A Imaging reviewed and procedural plan approved by Dr. TERRANCE MENDEZ MD documented in this encounter Plan of Treatment Not on file documented as of this encounter Visit Diagnoses Not on filedocumented in this encounter Care Teams Display Maker Relationship Specialty Start Date End Date Bettina Junior APRN [address] [place] [address] PCP - General 05/06/10 07/14/22 documented as of this encounter
--- OUTSIDE RECORDS SUMMARY | 2023-12-31 00:24 | XMS_ITS | Encounter Summary ---
Author Organization [facility] Address [address] [place] [address] Care Team Providers Care Nurse Paralegal Name Role Phone Bettina Junior CUE WORKER Primary Care Provider [phone]- [phone] Encounter Details Date Type Department Care Team (Late st Contact Info) Description 09/16/2017 Results Only [facility] [phone] [facility] [facility] [address] [place] [address] Social History Tobacco Use Types Packs/Day Years Used Date Smoking Tobacco: Never Assessed Sex and Gender Information Value Date Recorded Sex Assigned at Not on file Gender Identity Not on file Sexual Orientation Not on file documented as of this encounter Plan of Treatment Not on file documented as of this encounter Procedures Procedure Name Priority Date/Time Associated Diagnosis Comments SURGICAL PATHOLOGY Routine 09/16/2017 16 :33 EDT PAP TEST- RESULT ONLY Routine 09/16/2017 0:00 EDT documented in this encounter Results * SURGICAL PATHOLOGY (09/16/2017 16:33 EDT) Pathology Report: SURGICAL PATHOLOGY REPORT Reports generated via electronic interface contain original data; however they are lacking the format of the original report. Caution should be taken when reading/interpretin g unformatted reports. Name: ? MICHELLE TAM ? Accession #: ? [id number] ? : ? 1975 (Age: 41) ??F ? Collect Date: ? 09/16/2017 ? Location: ? [facility] ? Receive Date: ? 09/16/2017 ? Provider: POORNIMA SHANNON MD Copy to: SUSAN KEEN MD ? Final Pathologic Diagnosis: SKIN OF BREAST, LEFT, PUNCH BIOPSY: - Calcinosis cutis. See comment. ?? Comment: The biopsy is notable for dermal calcification that is associated with focal keratinous debris. The features could represent a calcified cyst. There is no evidence of malignancy. (Dr. Mendoza)/jds Microscopic Description: Sections consist of a punch biopsy of skin to the deep reticular dermis. The epidermis is fragmented but otherwise unremarkable. Within the dermis, there are large nodular aggregates of calcifications. In some areas, the calcification appears to be associated with keratinous material. There is focal ossification. A few multinucleate giant cells surround the areas of calcification. The dermis, otherwise, shows slight hypercellularity but no appreciable atypia. Deeper sections have similar features. (Dr. Ge/jds Document reviewed and electronically signed by: BENJY MEDNOZA MD Report ??Date: 09/21/2017 13:50 By the signature above, the attending physician certifies that he/she has personally conducted a gross and/or microscopic examination of the described specimens and rendered or confirmed the above diagnosis. Specimen(s) Received: Punch biopsy L breast Clinical History: L breast lesion, hx of breast CA, contralateral breast Gross Description: ? Received in formalin labelled with proper patient identification (initials P, C) and left breast is an irregular dusky brown-herrera skin fragment, 0.3 x 0.2 cm and excised to a depth of 0.1 cm. Orientation is not obvious. Entirely submitted in 1. ? Time removed from patient: 1020 hours 09/16/2017 Time placed in formalin: 1035 hours 09/16/2017 Time out of formalin: 0130 hrs. 09/17/2017 JUAN M Millan (ASCP) 09/16/2017 4:57 PM End of Report [facility] 09/16/2017 16:3 3 EDT 09/16/2017 16:33 EDT Poornima Shannon MD PATHOLOGY ORDERABLES [facility] [address] [place] [address] * PAP TEST- RESULT ONLY (09/16/2017 0:00 EDT) Pathology Report: CYTOPATHOLOGY REPORT Reports generated via electronic interface contain original data; however they are lacking the format of the original report. Caution should be taken when reading/interpreti ng unformatted reports. Name: ? MICHELLE ATM ? Accession #: ? [id number] ? : ? 1975 (Age: 41) ??F ?Collect Date: ? 09/16/2017 ? Location: ? [facility] ? Receive Date: ? 09/17/2017 ? Provider: POORNIMA SHANNON MD Copy to: SUSAN KEEN MD ? Final Report SPECIMEN ADEQUACY ? Satisfactory for Evaluation - transformation zone component present GENERAL CATEGORIZATION ? Negative for Intraepithelial Lesion or Malignancy ?? Hormonal/Contracep tive status: Intrauterine device Specimen/Source: ??Pap Test, Cervix, ThinPrep Imaging System with manual evaluation Document reviewed and electronically signed by: ? Arielle Gamino, CT(ASCP) ? Report ??Date: 09/23/2017 08:58 HPV with Pap Test ? Date Ordered: ? 09/23/2017 ? Status: ?? Signed Out ?Date Complete: ? 09/24/2017 ? By: ??System Interface ? Date Reported: ? 09/24/2017 ? Interpretation RESULT: Negative for HPV. No E6 or E7 mRNA is detected from HPV types 16,18,31,33,35, 39,45,51,52,56,58, 59,66, and 68 by scenic arts supervisor mediated amplification. Comments Document reviewed and electronically signed by: ? System Interface ? Report date: 09/24/2017 By the signature above, the attending physician certifies that he/she has personally conducted a gross and/or microscopic examination of the described specimens and rendered or confirmed the above diagnosis. End of Report [facility] 09/16/2017 09/17/2017 Poornima Shannon MD PATHOLOGY ORDERABLES Performing Organization Address City/State/[facility] Co de Phone Number [facility] [address] [place] [address] documented in this encounter Visit Diagnoses Not on filedocumented in this encounter Care Teams Nurse Paralegal Relationship Specialty Start Date End Date Bettina Junior NP [facility] [address] [place] [address] PCP - General 02/03/11 04/01/20 documented as of this encounter
--- OUTSIDE RECORDS SUMMARY | 2023-12-31 00:24 | XMS_ITS | Encounter Summary ---
Author Organization [facility] [place] [address] Care Team Providers Care Butcher'S Assistant Name Role Phone Bettina Juniro APRN Primary Care Provider [phone] [phone] Encounter Details Date Type Department Care Team (Late st Contact Info) Description 03/28/2020 12:05 AM EDT Ancillary Procedure [place] [address] Bettina Junior APRN [address] [place], [place] [phone] Social History Tobacco Use Types Packs/Day Years Used Date Smoking Tobacco: Never Assessed Sex and Gender Information Value Date Recorded Sex Assigned at Not on file Gender Identity Not on file Sexual Orientation Not on file documented as of this encounter Plan of Treatment Not on file documented as of this encounter Procedures Procedure Name Priority Date/Time Associated Diagnosis Comments FILM LIBRARY STORAGE ONLY MAMMO Routine 03/28/2020 12:05 AM EDT documented in this encounter Results * Film Library- Storage Only Mammo (03/28/2020 12:05 AM EDT) Narrative AIDEN - 12/15/2020 9:28 AM EDT This exam is auto-finalizing. It's purpose is for storage only. Bettina Junior APRN IMG FILM LIBRARY ORDERABLES [place], [place] documented in this encounter Visit Diagnoses Not on filedocumented in this encounter Care Teams Butcher'S Assistant Relationship Specialty Start Date End Date Bettina Junior APRN [address] [place] [address] PCP - General 05/06/10 07/14/22 documented as of this encounter
--- OUTSIDE RECORDS SUMMARY | 2023-12-31 00:24 | XMS_ITS | Encounter Summary ---
Author Organization [facility] [place] [address] Care Team Providers Care Export Freight Clerk Name Role Phone Bettina Junior APRN Primary Care Provider [phone] [phone] Encounter Details Date Type Department Care Team (Late st Contact Info) Description 09/17/2017 Ancillary Procedure [place] [phone] Bettina Junior APRN [address] [place], [place] [phone] Social History Tobacco Use Types Packs/Day Years [...] Comments FILM LIBRARY STORAGE ONLY MAMMO Routine 09/17/2017 12:00 AM EDT documented in this encounter Results * Film Library- Storage Only Mammo (09/17/2017 12:00 AM EDT) Narrative AIDEN - 12/15/2020 9:30 AM EDT This exam is auto-finalizing. It's purpose is for storage only. Bettina Junior APRN IMG FILM LIBRARY ORDERABLES [place], [place] documented in this encounter Visit Diagnoses Not on filedocumented in this encounter Care Teams Export Freight Clerk Relationship Specialty Start Date End Date Bettina Junior APRN [address] [place] [address] PCP - General 05/06/10 07/14/22 documented as of this encounter
--- OUTSIDE RECORDS SUMMARY | 2023-12-31 00:24 | XMS_ITS | Encounter Summary ---
[place] [address] Care Team Providers Care Rn Case Mgr Name Role Phone Bettina Junior APRN Primary Care Provider [phone] Reason for Visit * Consultation (Routine) - Closed Specialty Diagnoses / Procedures Referred By Contuma t Referred To Contact Dermatology Diagnoses Encounter for screening for malignant neoplasm of skin Procedures Skin Check Kiya Narvaez MD [address] [place] [address] Robby Doty MD [address] [place] [address] [place] [address] Referral ID Status Reason Start Date Expiration Date Visits Re quested Visits Authorized [id number] Closed 11/20/2015 11/19/2016 1 1 Encounter Details Date Type Department Care Team (Late st Contact Info) Description 03/06/2016 11:15 AM EDT Office Visit Dermatology at [address] [place] [id number] Robby Doty MD [address] [place] [address] DERMATOLOGY [place], [place] [id number] Nevus Social History Tobacco Use Types Packs/Day Years Used Date Smoking Tobacco: Never Assessed Sex and Gender Information Value Date Recorded Sex Assigned at Not on file Gender Identity Not on file Sexual Orientation Not on file documented as of this encounter Progress Notes * Robby Doty MD - 03/06/2016 11:15 AM EDT PROBLEM: Skin check. Michelle follows up after last seeing me in 2004, at which time I did a biopsy of a left lower back pigmented lesion, which came back showing vklxztyk-ag-aiyorl atypia, margins clear, but no melanoma. The patient's mother recently was diagnosed with BCCA of the left nasal sidewall and underwent Mohs surgery. Michelle would like to have a general skin check herself, and to rule out the possibility that she is developing any skin cancers. Since our last visit, the patient is status post breast CA, right mastectomy with a silicone breast implant. Physical examination reveals a pleasant 40-year-old woman who has type 3 Cleaning pigmentation. She has a pedunculated, often irritated nevus on the left medial breast. Examination of the face, the chest, the back, hands, arms, forearms, thighs and the calves is otherwise benign. There is no evidence of any malignant lesions today. She has a well-healed scar on the left lower back at the site of our 2005 atypical nevus excision. ASSESSMENT/PLAN: 1. Irritated nevus, left medial breast. a. As this particular nevus is pedunculated, often rubbed and irritated by her bra and clothing, it was removed with shave biopsy today and submitted for pathologic analysis. 2. Benign skin examination. a. Patient reassured about benign skin examination. b. I encouraged sun avoidance precautions. c. Recommended I see her back again p.r.n. for any lesions/concerns. She requested, and I think it is reasonable that we plan for a followup in another 5 years. Return reminder 5 years. CC: Bettina Junior APRN documented in this encounter Plan of Treatment Not on file documented as of this encounter Visit Diagnoses Diagnosis Nevus Benign neoplasm of skin, site unspecified documented in this encounter Care Teams Rn Case Mgr Relationship Specialty Start Date End Date Bettina Junior APRN [address] [place] [address] PCP - General 05/06/10 07/14/22 documented as of this encounter
--- OUTSIDE RECORDS SUMMARY | 2023-12-31 00:24 | XMS_ITS | Encounter Summary ---
Author Organization [facility] Address [address] [place] [address] Care Team Providers Care Caser Name Role Phone Unavailable Primary Care Provider Unavailabl e Encounter Details Date Type Department Care Team (Late st Contact Info) Description 01/29/2011 Results Only [facility] [phone] Shi Reyes MD [address] [place] [address] Social History Tobacco Use Types Packs/Day Years Used Date Smoking Tobacco: Never Assessed Sex and Gender Information Value Date Recorded Sex Assigned at Not on file Gender Identity Not on file Sexual Orientation Not on file documented as of this encounter Plan of Treatment Not on file documented as of this encounter Procedures Procedure Name Priority Date/Time Associated Diagnosis Comments SURGICAL PATHOLOGY Routine 01/29/2011 0:00 EDT SURGICAL PATHOLOGY Routine 01/29/2011 0:00 EDT documented in this encounter Results * SURGICAL PATHOLOGY (01/29/2011 0:00 EDT) Pathology Report: SURGICAL PATHOLOGY REPORT ? Reports generated via electronic interface contain original data; ? however they are lacking the format of the original report. ? Caution should be taken when reading/interpreti ng unformatted reports. ? Name: ? PORCELLI, MICHELLE ? Accession #: ? [id number] ? : ? 1975 (Age: 35) ??F ? Collect Date: ? 01/29/2011 ? Location: ? [facility] ? Receive Date: ? 01/30/2011 ? Provider: SHI REYES MD ? Copy to: ALBERTO L TOM MAINTENANCE TRUCK DRIVER ? ANEA LELONG CNM ? Final Pathologic Diagnosis: ? Term waller placenta: ? 1. ?Umbilical cord and membranes with no abnormalities. ? 2. ? Placenta, weight at 10th percentile, with two small retroplacental ? hematomas and focus of attached myometrium. ??See Comment. ? Comment: ? On the maternal surface there is a microscopic focus of attached myometrium with two large vessels. ??There is decidua between the myometrium and the ? placenta, which precludes the diagnosis of accreta. ??(Rowena Barney MD) ? Document reviewed and electronically signed by: ? HAMILTON L BARNEY MD ? Report ??Date: 02/03/2011 13:11 ? By the signature above, the attending physician certifies that he/she has ? personally conducted a gross and/or microscopic examination of the described ? specimens and rendered or confirmed the above diagnosis. ? Specimen(s) Received: ? Placenta and membranes, cord ? Clinical History: ? Spont delivered 0610, delivered 01/29/11 at 0555; ; hx br Ca Rt ?? mastectomy '03; induced Bowling & Pitocin at 39 wk; PIH/preeclampsia MgSO4 in ? labor, ELOF Matexh; placenta and memb del spont & intact PPH approximately ? 1000 cc Pitocin, misoprostol, Hemabate, 4 hours POLYP increased bleeding ? Pitocin, misoprostol ??to OR D+C; placenta and membranes; LMP: 04/30/10 ? Gross Description: ? Received in formalin labelled Porcelli, Michelle and placenta is a ? waller placenta with attached membranes and cord. ??The circular placental ? disc weighs 426 grams after removal of membranes and cord and measures 14.7 x ?? 14.5 x 6.0 cm. ??The membranes are omalley-pink, translucent, and have a moderate ? amount of attached hemorrhagic material. ??The membranes have a marginal to ? circum-marginal insertion. ??The eccentrically inserted umbilical cord measures ?? 25.5 cm in length and averaging 1.0 cm in diameter. ??The cord inserts 4.2 cm ? from the nearest peripheral margin. ??Upon sectioning, the cut surfaces have ? three vessels in a herrera-white, gelatinous matrix. ??The surfaces are ? wdwj-kwau-uulkbk with prominent dilated vessels and a moderate amount of ? subchorionic fibrin deposition. ??The maternal aspect is red-brown with ? well-demarcated cotyledons, minimal fragmentation, and attached hemorrhagic ? material. ??The cut surfaces are red-brown and spongy with two omalley-yellow, ? focally indurated lesions present measuring 0.6 and 1.2 cm in greatest ? dimension. ??The cut surfaces are red-brown and spongy. ??The specimen is serially sectioned and insurance claim representative sections are submitted as follows: ? BLOCK JEROME ? A1 ?Membrane roll ? A2 ?Umbilical cord ? A3, A4 ?Placenta full thickness, with (A3) to include the indurated ? lesion. ? (M. Espinosa)/kmm ? End of Report ? [facility] 01/29/2011 01/30/2011 11: 30 EDT Shi Reyes MD PATHOLOGY ORDERABLES [facility] [address] [place] [address] * SURGICAL PATHOLOGY (01/29/2011 0:00 EDT) Pathology Report: SURGICAL PATHOLOGY REPORT ? Reports generated via electronic interface contain original data; ? however they are lacking the format of the original report. ? Caution should be taken when reading/interpreti ng unformatted reports. ? Name: ? PORCELLI, MICHELLE ? Accession #: ? [id number] ? : ? 1975 (Age: 35) ??F ? Collect Date: ? 01/29/2011 ? Location: ? [facility] ? Receive Date: ? 01/30/2011 ? Provider: SHI REYES MD ? Copy to: ALBERTO L TOM MAINTENANCE TRUCK DRIVER ? ANEA LELONG CNM ? Final Pathologic Diagnosis: ? Uterine contents, evacuation: ? 1. ?Portions of third trimester placental tissue with acute ? inflammation. ? 2. ? Abundant decidua with thrombosed blood vessels. ? Document reviewed and electronically signed by: ? SUMA C MI MD ? Report ??Date: 02/02/2011 16:47 ? By the signature above, the attending physician certifies that he/she has ? personally conducted a gross and/or microscopic examination of the described ? specimens and rendered or confirmed the above diagnosis. ? Specimen(s) Received: ? Contents of uterus ? Clinical History: ? Post- hemorrhage ? Gross Description: ? Received in formalin labelled Porcelli, Michelle and contents of ? uterus is a 7.5 x 5.5 x 3.0 cm aggregate of pink-omalley and omalley-red soft tissue ?? fragments admixed with abundant red-brown blood clot. ??No definitive placental ?? tissue is identified, however, some of the soft tissue is slightly spongy and ?? could represent fragments of placental disc. ??Rotary Envelope Machine Operator sections are ? submitted in (A1) ??(A3). ??(Lyn Jiménez)/min ? End of Report ? [facility] 01/29/2011 01/30/2011 8:1 9 EDT Shi Reyes MD PATHOLOGY ORDERABLES [facility] [address] [place] [address] documented in this encounter Visit Diagnoses Not on filedocumented in this encounter
--- OUTSIDE RECORDS SUMMARY | 2023-12-31 00:24 | XMS_ITS | Encounter Summary ---
Author Organization [facility] Address [address] [place] [address] Care Team Providers Care Digital Camera Technician Name Role Phone Unavailable Primary Care Provider Unavailabl e Encounter Details Date Type Department Care Team (Late st Contact Info) Description 01/21/2006 Results Only [facility] [address] [place] [address] Bettina Tom, SHRUTHI [address] [place] [phone] Social History Tobacco Use Types Packs/Day Years Used Date Smoking Tobacco: Never Assessed Sex and Gender Information Value Date Recorded Sex Assigned at Not on file Gender Identity Not on file Sexual Orientation Not on file documented as of this encounter Plan of Treatment Not on file documented as of this encounter Procedures Procedure Name Priority Date/Time Associated Diagnosis Comments CYTOPATHOLOGY Routine 01/21/2006 0:00 EDT documented in this encounter Results * CYTOPATHOLOGY (01/21/2006 0:00 EDT) Pathology Report: CYTOPATHOLOGY REPORT Reports generated via electronic interface contain original data; however they are lacking the format of the original report. Caution should be taken when reading/interpreti ng unformatted reports. Name: ? MICHELLE TAM ? Accession #: ? [id number] : ? 1975 (Age: 30) ??F ?Collect Date: ? 01/21/2006 Location: ? [facility] ? Receive Date: ? 01/25/2006 Provider: ?BETTINA TOM NAVY MATERIAL INSPECTOR Copy to: ? Specimen/Source: ?ThinPrep Pap Test, Cervix, processed on [employer] ThinPrep Imaging System, with manual evaluation Last Menstrual Period: ? 01/15/06 Other: ? HPVA - HPV testing requested if ASC-US on the current ThinPrep Pap test. ? SPECIMEN ADEQUACY ? Satisfactory for Evaluation - transformation zone component present GENERAL CATEGORIZATION ? Negative for Intraepithelial Lesion or Malignancy ? Document reviewed and electronically signed by: ? AMOS [place](ASCP) ? Report Date: ??01/27/2006 15:18 End of Report [facility] 01/21/2006 01/25/2006 Bettina Tom NP PATHOLOGY ORDERABLE S [facility] [address] [place] [address] documented in this encounter Visit Diagnoses Not on filedocumented in this encounter
--- OUTSIDE RECORDS SUMMARY | 2023-12-31 00:24 | XMS_ITS | Encounter Summary ---
Author Organization [facility] Address [address] [place] [address] Care Team Providers Care Radio Installer Name Role Phone Unavailable Primary Care Provider Unavailabl e Encounter Details Date Type Department Care Team (Late st Contact Info) Description 02/26/2005 Results Only [facility] - [place] conversion [address] [place] [address] Bettina Tom, SHRUTHI [address] [place] [phone] Social History Tobacco Use Types Packs/Day Years Used Date Smoking Tobacco: Never Assessed Sex and Gender Information Value Date Recorded Sex Assigned at Not on file Gender Identity Not on file Sexual Orientation Not on file documented as of this encounter Plan of Treatment Not on file documented as of this encounter Procedures Procedure Name Priority Date/Time Associated Diagnosis Comments CYTOPATHOLOGY Routine 02/26/2005 0:00 EDT documented in this encounter Results * CYTOPATHOLOGY (02/26/2005 0:00 EDT) Pathology Report: CYTOPATHOLOGY REPORT Reports generated via electronic interface contain original data; however they are lacking the format of the original report. Caution should be taken when reading/interpreti ng unformatted reports. Name: ? MICHELLE TAM ? Accession #: ? [id number] : ? 1975 (Age: 29) ??F ?Collect Date: ? 02/26/2005 Location: ? [facility] ? Receive Date: ? 03/02/2005 Provider: ?BETTINA TOM CLIENT FINANCE ANALYST Copy to: ? Specimen/Source: ?ThinPrep Pap Test, Cervix, processed on [employer] BioinformaticsPrep Imaging System, with manual evaluation Last Menstrual Period: ? 02/22/05 Other: ? Additional clinical information: Breast cystosarcoma 2002 ? SPECIMEN ADEQUACY ? Satisfactory for Evaluation - transformation zone component present GENERAL CATEGORIZATION ? Negative for Intraepithelial Lesion or Malignancy ? Document reviewed and electronically signed by: ? Thony Singer, AMOS(ASCP) ? Report Date: ??03/09/2005 11:11 End of Report [facility] TH[facility]PS[facility] 02/26/2005 03/02/2005 Bettina Tom CLIENT FINANCE ANALYST PATHOLOGY ORDERABLE S [facility] [address] [place] [address] documented in this encounter Visit Diagnoses Not on filedocumented in this encounter
--- OUTSIDE RECORDS SUMMARY | 2023-12-31 00:24 | XMS_ITS | Encounter Summary ---
[facility] [place] [address] Care Team Providers Care Net Solutions Architect Name Role Phone Bettina Junior APRN Primary Care Provider [phone] Encounter Details Date Type Department Care Team (Late st Contact Info) Description 11/12/2015 Ancillary Procedure [place] [phone] Bettina Junior APRN [address] [place], [place] [address] Social History Tobacco Use Types Packs/Day Years [...] Comments FILM LIBRARY-STORAGE ONLY US BREAST Routine 11/12/2015 12:00 AM EDT documented in this encounter Results * Film Library Storage Only US Breast (11/12/2015 12:00 AM EDT) Narrative AIDEN - 12/15/2020 9:30 AM EDT This exam is auto-finalizing. It's purpose is for storage only. Bettina Junior APRN IMG FILM LIBRARY ORDERABLES [place], [place] documented in this encounter Visit Diagnoses Not on filedocumented in this encounter Care Teams Net Solutions Architect Relationship Specialty Start Date End Date Bettina Junior APRN [address] [place] [address] PCP - General 05/06/10 07/14/22 documented as of this encounter
--- OUTSIDE RECORDS SUMMARY | 2023-12-31 00:24 | XMS_ITS | Clinical Summary ---
Author Organization [facility] Address [address] [place] [address] Care Team Providers Care Career Development Director Name Role Phone Anisha Yarbrough MD Primary Care Provider [phone] Social History Tobacco Use Types Packs/Day Years Used Date Smoking Tobacco: Never Assessed Sex and Gender Information Value Date Recorded Sex Assigned at Not on file Gender Identity Not on file Sexual Orientation Not on file Plan of Treatment Health Maintenance Due Date Last Done Comments Hepatitis C Screen 1975 Hepatitis B Vaccine (1 of 3 - 19+ 3-dose series) 09/29 COVID-19 Vaccine ( season) 2023 Care Teams Career Development Director Relationship Specialty Start Date End Date Anisha Yarbrough MD [address] [place] [address] PCP - General 04/02/20
--- OUTSIDE RECORDS SUMMARY | 2023-12-31 00:24 | XMS_ITS | Encounter Summary ---
[place] [address] Care Team Providers Care Gas Leak Inspector Name Role Phone Bettina Junior APRN Primary Care Provider [phone] Encounter Details Date Type Department Care Team (Late st Contact Info) Description 05/21/2010 2:00 PM EST Office Visit [place] [address] Social History Tobacco Use Types Packs/Day Years Used Date Smoking Tobacco: Never Assessed Sex and Gender Information Value Date Recorded Sex Assigned at Not on file Gender Identity Not on file Sexual Orientation Not on file documented as of this encounter Plan of Treatment Not on file documented as of this encounter Visit Diagnoses Not on filedocumented in this encounter Care Teams Gas Leak Inspector Relationship Specialty Start Date End Date Bettina Junior APRN [address] [place] [address] PCP - General 05/06/10 07/14/22 documented as of this encounter
--- OUTSIDE RECORDS SUMMARY | 2023-12-31 00:24 | XMS_ITS | Encounter Summary ---
Author Organization [facility] Address [address] [place] [address] Care Team Providers Care Refrigeration Operator Name Role Phone Unavailable Primary Care Provider Unavailabl e Encounter Details Date Type Department Care Team (Late st Contact Info) Description 04/09/2009 Orders Only [facility] Laboratory Services - [facility] ([facility] [address] [place], [place] [address] Bettina Tom, SHRUTHI [address] [place] [address] Social History Tobacco Use Types Packs/Day Years Used Date Smoking Tobacco: Never Assessed Sex and Gender Information Value Date Recorded Sex Assigned at Not on file Gender Identity Not on file Sexual Orientation Not on file documented as of this encounter Plan of Treatment Not on file documented as of this encounter Procedures Procedure Name Priority Date/Time Associated Diagnosis Comments CYTOPATHOLOGY Routine 04/09/2009 0:00 EDT documented in this encounter Results * CYTOPATHOLOGY (04/09/2009 0:00 EDT) Pathology Report: CYTOPATHOLOGY REPORT ? Reports generated via electronic interface contain original data; ? however they are lacking the format of the original report. ? Caution should be taken when reading/interpreti ng unformatted reports. ? Name: ? MICHELLE TAM ? Accession #: ? [id number] ? : ? 1975 (Age: 33) ??F ?Collect Date: ? 04/09/2009 ? Location: ? [facility] ? Receive Date: ? 04/10/2009 ? Provider: ?BETTINA L TOM OFFICIAL COURT REPORTER ? Copy to: ? Specimen/Source: ?Pap Test, Cervix/Endocervix, ThinPrep Imaging System ? with manual evaluation ? Last Menstrual Period: ? 10/11/09 ? Other: ? HPVA - HPV testing requested if ASC-US on the current ThinPrep Pap test. ? SPECIMEN ADEQUACY ? Satisfactory for Evaluation ? - transformation zone component present ? GENERAL CATEGORIZATION ? Negative for Intraepithelial Lesion or Malignancy ? Document reviewed and electronically signed by: ? Carmen Calderon, [place](ASCP)(IAC) ? Report Date: ??04/17/2009 13:02 ? End of Report ? [facility] 04/09/2009 04/10/2009 Bettina Tom NP PATHOLOGY ORDERABLE S [facility] [address] [place] [address] documented in this encounter Visit Diagnoses Not on filedocumented in this encounter
--- OUTSIDE RECORDS SUMMARY | 2023-12-31 00:24 | XMS_ITS | Encounter Summary ---
Author [facility] [place] [address] Care Team Providers Care Tankman Name Role Phone Bettina Junior APRN Primary Care Provider [phone] Encounter Details Date Type Department Care Team (Late st Contact Info) Description 11/12/2015 12:05 AM EDT Ancillary Procedure [place] [address] Bettina Junior APRN [address] [place], [place] [id number] Social History Tobacco Use Types Packs/Day Years [...] Comments FILM LIBRARY STORAGE ONLY MAMMO Routine 11/12/2015 12:05 AM EDT documented in this encounter Results * Film Library- Storage Only Mammo (11/12/2015 12:05 AM EDT) Narrative AIDEN - 12/15/2020 9:31 AM EDT This exam is auto-finalizing. It's purpose is for storage only. Bettina Junior APRN IMG FILM LIBRARY ORDERABLES [place], [place] documented in this encounter Visit Diagnoses Not on filedocumented in this encounter Care Teams Tankman Relationship Specialty Start Date End Date Bettina Junior APRN [address] [place] [address] PCP - General 05/06/10 07/14/22 documented as of this encounter
--- OUTSIDE RECORDS SUMMARY | 2023-12-31 00:24 | XMS_ITS | Encounter Summary ---
Author Organization [facility] Address [address] [place] [address] Care Team Providers Care Juvenile Counselor Name Role Phone Bettina Junior COMPRESSED GAS PLANT WORKER Primary Care Provider [phone] Encounter Details Date Type Department Care Team (Late st Contact Info) Description 03/04/2011 Results Only [facility] Laboratory Services - [facility] ([facility]) [address] [place], [place] [address] Sofia Carter MD [address] [facility] [place] [address] Social History Tobacco Use Types Packs/Day Years Used Date Smoking Tobacco: Never Assessed Sex and Gender Information Value Date Recorded Sex Assigned at Not on file Gender Identity Not on file Sexual Orientation Not on file documented as of this encounter Plan of Treatment Not on file documented as of this encounter Procedures Procedure Name Priority Date/Time Associated Diagnosis Comments PAP TEST- RESULT ONLY Routine 03/04/2011 0:00 EDT documented in this encounter Results * PAP TEST- RESULT ONLY (03/04/2011 0:00 EDT) Pathology Report: CYTOPATHOLOGY REPORT ? Reports generated via electronic interface contain original data; ? however they are lacking the format of the original report. ? Caution should be taken when reading/interpreti ng unformatted reports. ? Name: ? MICHELLE TAM ? Accession #: ? [id number] ? : ? 1975 (Age: 35) ??F ?Collect Date: ? 03/04/2011 ? Location: ? [facility] ? Receive Date: ? 03/05/2011 ? Provider: ?SOFIA CARTER MD ? Copy to: ? Specimen/Source: ?Pap Test, Cervix/Endocervix, ThinPrep Imaging System ? with manual evaluation ? Last Menstrual Period: ? Menstrual/Pregnanc y Status: ? Post ? SPECIMEN ADEQUACY ? Satisfactory for Evaluation ? - transformation zone component present ? GENERAL CATEGORIZATION ? Negative for Intraepithelial Lesion or Malignancy ? Document reviewed and electronically signed by: ? Ana Lilia [place],CT(ASCP) ? Report Date: ??03/11/2011 11:28 ? End of Report ? [facility] 03/04/2011 03/05/2011 Sofia Carter MD PATHOLOGY ORDERABLES Performing Organization Address City/State/[facility] Co de Phone Number [facility] [address] [place] [address] documented in this encounter Visit Diagnoses Not on filedocumented in this encounter Care Teams Juvenile Counselor Relationship Specialty Start Date End Date Bettina Junior NP [address] [place] [phone] PCP - General 02/03/11 04/01/20 documented as of this encounter
--- OUTSIDE RECORDS SUMMARY | 2023-12-31 00:24 | XMS_ITS | Encounter Summary ---
Author Organization [facility] Address [address] [place] [address] Care Team Providers Care Tank Riveter Name Role Phone Unavailable Primary Care Provider Unavailabl e Encounter Details Date Type Department Care Team (Late st Contact Info) Description 02/02/2008 Before PRISM Converted Visit (Maple) [facility] - Maple conversion [address] [place] [address] Bettina Tom, SHRUTHI [address] [place] [phone] Social History Tobacco Use Types Packs/Day Years Used Date Smoking Tobacco: Never Assessed Sex and Gender Information Value Date Recorded Sex Assigned at Not on file Gender Identity Not on file Sexual Orientation Not on file documented as of this encounter Plan of Treatment Not on file documented as of this encounter Procedures Procedure Name Priority Date/Time Associated Diagnosis Comments CYTOPATHOLOGY Routine 02/02/2008 0:00 EDT documented in this encounter Results * CYTOPATHOLOGY (02/02/2008 0:00 EDT) Pathology Report: CYTOPATHOLOGY REPORT ? Reports generated via electronic interface contain original data; ? however they are lacking the format of the original report. ? Caution should be taken when reading/interpreti ng unformatted reports. ? Name: ? MICHELLE TAM ? Accession #: ? [id number] ? : ? 1975 (Age: 32) ??F ?Collect Date: ? 02/02/2008 ? Location: ? [facility] ? Receive Date: ? 02/06/2008 ? Provider: ?BETTINA L TOM FORENSIC DNA ANALYST ? Copy to: ? Specimen/Source: ?ThinPrep Pap Test, Cervix/Endocervix, processed on Cytyc ThinPrep Imaging System, with manual evaluation ? Last Menstrual Period: ? 8/10/08 ? Other: ? HPVA - HPV testing requested if ASC-US on the current ThinPrep Pap test. ? SPECIMEN ADEQUACY ? Satisfactory for Evaluation ? - transformation zone component present ? GENERAL CATEGORIZATION ? Negative for Intraepithelial Lesion or Malignancy ? Document reviewed and electronically signed by: ? Carolina Moyag, [place](ASCP) ? Report Date: ??02/08/2008 15:03 ? End of Report ? GUZMAN THOMPSON 02/02/2008 02/06/2008 Bettina Tom NP PATHOLOGY ORDERABLE S [facility] [address] [place] [address] documented in this encounter Visit Diagnoses Not on filedocumented in this encounter
--- OUTSIDE RECORDS SUMMARY | 2023-12-31 00:24 | XMS_ITS | Encounter Summary ---
Author Organization [facility] Address [address] [place] [address] Care Team Providers Care High School Sports Coach Name Role Phone Bettina Junior CAT SCAN TECHNOLOGIST Primary Care Provider [phone] Encounter Details Date Type Department Care Team (Late st Contact Info) Description 01/10/2014 Results Only [facility] Laboratory Services - [facility] ([facility]) [address] [place], [place] [address] Charo Araujo NP [facility] [address] [place], [place] [id number] Social History Tobacco Use Types Packs/Day Years [...] Diagnosis Comments PAP TEST- RESULT ONLY Routine 01/10/2014 0:00 EDT documented in this encounter Results * PAP TEST- RESULT ONLY (01/10/2014 0:00 EDT) Pathology Report: CYTOPATHOLOGY REPORT Reports generated via electronic interface contain original data; however they are lacking the format of the original report. Caution should be taken when reading/interpreti ng unformatted reports. Name: ? SONALBACash MICHELLE ? Accession #: ? [id number] : ? 1975 (Age: 38) ??F ?Collect Date: ? 01/10/2014 Location: ? [facility] ? Receive Date: ? 01/12/2014 Provider: ?CHARO ARAUJO CAT SCAN TECHNOLOGIST Copy to: ? Specimen/Source: ?Pap Test, Cervix/Endocervix, ThinPrep Imaging System with manual evaluation Last Menstrual Period: ? Hormonal/Contracep tive Status: ? Intrauterine device: Mirena ? SPECIMEN ADEQUACY ? Satisfactory for Evaluation - transformation zone component present GENERAL CATEGORIZATION ? Negative for Intraepithelial Lesion or Malignancy ? Document reviewed and electronically signed by: ? AMOS Drummond(ASCP) ? Report Date: ??01/16/2014 13:30 End of Report [facility] 01/10/2014 01/12/2014 Charo Araujo CAT SCAN TECHNOLOGIST PATHOLOGY ORDERABLES Performing Organization Address City/State/[facility] Co de Phone Number [facility] [address] [place] [address] documented in this encounter Visit Diagnoses Not on filedocumented in this encounter Care Teams High School Sports Coach Relationship Specialty Start Date End Date Bettina Junior CAT SCAN TECHNOLOGIST [address] [place] [address] PCP - General 02/03/11 04/01/20 documented as of this encounter
--- OUTSIDE RECORDS SUMMARY | 2023-12-31 00:24 | XMS_ITS | Encounter Summary ---
Author Organization [facility] [place] [address] Care Team Providers Care Map Clerk Name Role Phone Bettina Junior APRN Primary Care Provider [phone] Encounter Details Date Type Department Care Team (Late st Contact Info) Description 05/21/2010 1:31 PM EST - 05/21/2010 11:59 PM [facility] Hospital Encounter [facility]W Raul Plata MD [facility] [place] [address] [address] Discharge Disposition: Home Social History Tobacco Use Types Packs/Day Years Used Date Smoking Tobacco: Never Assessed Sex and Gender Information Value Date Recorded Sex Assigned at Not on file Gender Identity Not on file Sexual Orientation Not on file documented as of this encounter Medications at Time of Discharge Medication Sig Dispensed Refills Start Date End Date Norelgestrom-Ethinyl Estradiol (ORTHO EVRA) 150-20 mcg/24 hr PTWK 09/20/2003 03/06/2016 citalopram (CELEXA) 20 mg tablet 09/20/19 04 06/24/2021 documented as of this encounter Plan of Treatment Not on file documented as of this encounter Visit Diagnoses Not on filedocumented in this encounter Care Teams Map Clerk Relationship Specialty Start Date End Date Bettina Junior APRN [address] [place] [address] PCP - General 05/06/10 07/14/22 documented as of this encounter
--- OUTSIDE RECORDS SUMMARY | 2023-12-31 00:24 | XMS_ITS | Encounter Summary ---
[facility] [place] [address] Care Team Providers Care Pararescue Craftsman Name Role Phone Bettina Junior APRN Primary Care Provider [phone] Encounter Details Date Type Department Care Team (Late st Contact Info) Description 03/24/2019 Ancillary Procedure [place] [phone] Bettina Junior APRN [address] [place], [place] [address] Social History Tobacco Use Types Packs/Day Years [...] Comments FILM LIBRARY-STORAGE ONLY US BREAST Routine 03/24/2019 12:00 AM EDT documented in this encounter Results * Film Library Storage Only US Breast (03/24/2019 12:00 AM EDT) Narrative AIDEN - 12/15/2020 9:29 AM EDT This exam is auto-finalizing. It's purpose is for storage only. Bettina Junior APRN IMG FILM LIBRARY ORDERABLES [place], [place] documented in this encounter Visit Diagnoses Not on filedocumented in this encounter Care Teams Pararescue Craftsman Relationship Specialty Start Date End Date Bettina Junior APRN [address] [place] [address] PCP - General 05/06/10 07/14/22 documented as of this encounter
--- OUTSIDE RECORDS SUMMARY | 2023-12-31 00:24 | XMS_ITS | Encounter Summary ---
Author Organization [facility] [place] [address] Care Team Providers Care Plastics Factory Worker Name Role Phone Bettina Junior APRN Primary Care Provider [phone] Encounter Details Date Type Department Care Team (Late st Contact Info) Description 03/12/2016 Telephone Dermatology at [address] [address] Kaleigh Louis LPN Social History Tobacco Use Types Packs/Day Years Used Date Smoking Tobacco: Never Assessed Sex and Gender Information Value Date Recorded Sex Assigned at Not on file Gender Identity Not on file Sexual Orientation Not on file documented as of this encounter Miscellaneous Notes * Telephone Encounter - Kaleigh Nichols LPN - 03/12/2016 1:08 PM EDT Nurse notified patient with biopsy results: Benign mole, no further treatment necessary, return to clinic PRN. documented in this encounter Plan of Treatment Not on file documented as of this encounter Visit Diagnoses Not on filedocumented in this encounter Care Teams Plastics Factory Worker Relationship Specialty Start Date End Date Bettina Junior APRN [address] [place] [address] PCP - General 05/06/10 07/14/22 documented as of this encounter
--- OUTSIDE RECORDS SUMMARY | 2023-12-31 00:24 | XMS_ITS | Encounter Summary ---
Author [facility] [place] [address] Care Team Providers Care Burning Plant Operator Name Role Phone Bettina Junior APRN Primary Care Provider [phone] Encounter Details Date Type Department Care Team (Late st Contact Info) Description 03/22/2019 Ancillary Procedure [place] [phone] Bettina Junior APRN [address] [place], [place] [id number] Social History Tobacco Use Types Packs/Day Years [...] Comments FILM LIBRARY STORAGE ONLY MAMMO Routine 03/22/2019 12:00 AM EDT documented in this encounter Results * Film Library- Storage Only Mammo (03/22/2019 12:00 AM EDT) Narrative AIDEN - 12/15/2020 9:29 AM EDT This exam is auto-finalizing. It's purpose is for storage only. Bettina Junior APRN IMG FILM LIBRARY ORDERABLES [place], [place] documented in this encounter Visit Diagnoses Not on filedocumented in this encounter Care Teams Burning Plant Operator Relationship Specialty Start Date End Date Bettina Junior APRN [address] [place] [address] PCP - General 05/06/10 07/14/22 documented as of this encounter
--- OUTSIDE RECORDS SUMMARY | 2023-12-31 00:24 | XMS_ITS | Encounter Summary ---
Author Organization [facility] [place] [address] Care Team Providers Care Shellfish Harvester Name Role Phone Anisha Yarbrough MD Primary Care Provider [phone] Encounter Details Date Type Department Care Team (Late st Contact Info) Description 02/05/2005 Orders Only Dermatology at [address] [place] [facility] [address] Robby Doty MD [address] [facility] [place] [address] Social History Tobacco Use Types Packs/Day Years Used Date Smoking Tobacco: Never Assessed Sex and Gender Information Value Date Recorded Sex Assigned at Not on file Gender Identity Not on file Sexual Orientation Not on file documented as of this encounter Plan of Treatment Not on file documented as of this encounter Procedures Procedure Name Priority Date/Time Associated Diagnosis Comments SURGICAL PATHOLOGY REPORT Routine 02/05/2005 5:40 PM EDT documented in this encounter Results * Surgical Pathology Report (02/05/2005 5:40 PM EDT) Surgical Pathology Report [id number] ? Location: The signing pathologist has (i) examined the relevant preparation(s) for the specimen(s) and (ii) rendered or confirmed the diagnosis(es). . ?Pathology Surgical Pathology Final Report Clinical Information Specimen Submitted: A - (L) lower back, excision. Clinical History: 5 x 7 mm atypical pigmented macule; atypical nevus, R/O MM. Gross Description Labeled/Fixativ e: ? L lower back, formalin. Qty/Size/Weight : ?Single, 1.3 x 0.9 x 0.7 cm. Tissue Description: ?? Ellipse of white skin with a 0.7 x 0.6 cm, light ?brown macule. Sections/Proces sing: ??The specimen is inked and serially sectioned. ??The ?ends are submitted in (1); the remainder of the ?specimen submitted in (2-3). ?? (T3) crh/SNS Microscopic Description Slides reviewed, microscopic description not recorded. 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 CR-0 02/06/05 [facility] 02/07/05 Verified by: ? Arielle Sim ?Dermatopathol ogist ?(Electronic Signature) The attending pathologist whose signature appears on this report has reviewed all diagnostic slides and has edited the gross and/or microscopic portion of the report in rendering the final pathologic diagnosis. NAN REBOLLEDO 02/05/2005 5:40 PM EDT Robby Doty MD PATHOLOGY/CYTOLOGY O RDERABLES NAN REBOLLEDO documented in this encounter Visit Diagnoses Not on filedocumented in this encounter Care Teams Shellfish Harvester Relationship Specialty Start Date End Date Anisha Yarbrough MD [address] [place] [address] PCP - General Family Medicine 07/15/22 documented as of this encounter
--- OUTSIDE RECORDS SUMMARY | 2023-12-31 00:24 | XMS_ITS | Encounter Summary ---
Author Organization [facility] Address [address] [place] [address] Care Team Providers Care Chief Minister Name Role Phone Bettina Junior NP Primary Care Provider Anisha Yarbrough MD Primary Care Provider [phone] Encounter Details Date Type Department Care Team (Late st Contact Info) Description 03/06/[address] [facility] Pathology & Laboratory Medicine - [address] [address] Adelita Gong, [address] [place] [address] Encounter for other general examination Social History Tobacco Use Types Packs/Day Years Used Date Smoking Tobacco: Never Assessed Sex and Gender Information Value Date Recorded Sex Assigned at Not on file Gender Identity Not on file Sexual Orientation Not on file documented as of this encounter Plan of Treatment Not on file documented as of this encounter Procedures Procedure Name Priority Date/Time Associated Diagnosis Comments PAP TEST Today 03/05/2020 9:45 EDT Encounter for other general examination HPV DNA DETECTION WITH GENOTYPING, PCR Today 03/05/2020 9:45 EDT Encounter for other general examination documented in this encounter Results * HUMAN PAPILLOMAVIRUS (HPV) DETECTION-HIGH RISK TYPES (03/05/2020 9:45 EDT) HPV other High Risk types, PCR Negative Negative 03/13/2020 14:57 EDT [facility] Comment:No E6 or E7 mRNA is detected from HPV types 16,18,31,33,35,39,45,51,52,56,58,59,66, and 68 by pump erector helper mediated amplification. Papanicolaou smear specimen (specimen) CERVIX UTERI STRUCTURE / Unknown 03/05/2020 9:45 EDT 03/12/2020 12:16 EDT Adelita Gong SMALL ELECTRIC ENGINE TECHNICIAN MICROBIOLOGY - GENER AL ORDERABLES [facility] [address] [place] [address] * PAP TEST (03/05/2020 9:45 EDT) Specimens A. Cervix and/or Endocervix , ThinPrep Imaging System with Manual Evaluation 03/13/2020 14:57 [facility] Specimen Adequacy Satisfactory for Evaluation - transformation zone component present 03/13/2020 14:57 [facility] General Categorization Negative for intraepithelial lesion or malignancy 03/13/2020 14:57 [facility] Descriptive Diagnosis Reactive cellular changes associated with inflammation present (includes repair). 03/13/2020 14:57 [facility] Attestation By the signature below, the attending physician certifies that they have personally conducted a gross and/or microscopic examination of the described specimens and rendered or confirmed the above diagnosis. 03/13/2020 14:57 [facility] at 1457 Clinical History See below 03/13/20 20 14:57 [facility] HPV The result for the Human Papillomavirus (HPV) Detection-High Risk Types is Negative. No E6 or E7 mRNA is detected from HPV types 16,18,31,33,35,39 ,45,51,52,56,58,5 9,66, and 68 by pump erector helper mediated amplification.Nadja ting was performed on specimen [id number] and was resulted on 03/13/2020 1453 EDT by TOÑO, LAB INSTRUMENT RESULTS IN 03/13/2020 14:57 EDT [facility] Performing Lab [facility] 03/13/2020 14:57 EDT [facility] Scanned Images 03/13/2020 14:57 EDT [facility] Papanicolaou smear specimen (specimen) CERVIX UTERI STRUCTURE / Unknown 03/05/2020 9:45 EDT 03/06/2020 11:35 EDT Adelita Gong SMALL ELECTRIC ENGINE TECHNICIAN PATHOLOGY ORDERABLES [facility] [address] [place] [address] documented in this encounter Visit Diagnoses Diagnosis Encounter for other general examination documented in this encounter Care Teams Chief Minister Relationship Specialty Start Date End Date Bettina Junior NP [address] [facility] [address] [place] [address] PCP - General 02/03/11 04/01/20 Anisha Yarbrough MD [address] [place] [address] PCP - General 04/02/20 documented as of this encounter
--- OUTSIDE RECORDS SUMMARY | 2023-12-31 00:24 | XMS_ITS | Encounter Summary ---
Author Organization [facility] [place] [address] Care Team Providers Care Ramp Attendant Name Role Phone Bettina Junior APRN Primary Care Provider [phone] Encounter Details Date Type Department Care Team (Late st Contact Info) Description 01/23/2014 Ancillary Procedure [place] [phone] Bettina Junior APRN [address] [place], [place] [address] Social History Tobacco Use Types Packs/Day Years [...] Comments FILM LIBRARY STORAGE ONLY MAMMO Routine 01/23/2014 12:00 AM EDT documented in this encounter Results * Film Library- Storage Only Mammo (01/23/2014 12:00 AM EDT) Narrative AIDEN - 12/15/2020 9:31 AM EDT This exam is auto-finalizing. It's purpose is for storage only. Bettina Juinor APRN IMG FILM LIBRARY ORDERABLES [place], [place] documented in this encounter Visit Diagnoses Not on filedocumented in this encounter Care Teams Ramp Attendant Relationship Specialty Start Date End Date Bettina Junior APRN [address] [place] [address] PCP - General 05/06/10 07/14/22 documented as of this encounter
--- OUTSIDE RECORDS SUMMARY | 2023-12-31 00:24 | XMS_ITS | Encounter Summary ---
Author Organization Health system Address [address] [place] [address] Care Team Providers Care Rollway Worker Name Role Phone Unavailable Primary Care Provider Unavailabl e Encounter Details Date Type Department Care Team (Late st Contact Info) Description 04/14/2010 Results Only [facility] Laboratory Services - [facility] ([facility]) [address] [place], [place] [address] Bettina Tom, SHRUTHI [address] [place] [phone] Social History Tobacco Use Types Packs/Day Years Used Date Smoking Tobacco: Never Assessed Sex and Gender Information Value Date Recorded Sex Assigned at Not on file Gender Identity Not on file Sexual Orientation Not on file documented as of this encounter Plan of Treatment Not on file documented as of this encounter Procedures Procedure Name Priority Date/Time Associated Diagnosis Comments CYTOPATHOLOGY Routine 04/14/2010 0:00 EDT documented in this encounter Results * CYTOPATHOLOGY (04/14/2010 0:00 EDT) Pathology Report: CYTOPATHOLOGY REPORT ? Reports generated via electronic interface contain original data; ? however they are lacking the format of the original report. ? Caution should be taken when reading/interpreti ng unformatted reports. ? Name: ? MICHELLE TAM ? Accession #: ? [id number] ? : ? 1975 (Age: 34) ??F ?Collect Date: ? 04/14/2010 ? Location: ? [facility] ? Receive Date: ? 04/16/2010 ? Provider: BETTINA L TOM WHEEL CUTTER ? Copy to: ? Final Report ? SPECIMEN ADEQUACY ? Satisfactory for Evaluation ? - transformation zone component present ? GENERAL CATEGORIZATION ? Negative for Intraepithelial Lesion or Malignancy ? Last Menstural Period: 10/20/10 ? Specimen/Source: ??Pap Test, Cervix, ThinPrep Imaging System with manual ? evaluation ? Document reviewed and electronically signed by: ? Ana Lilia Verville,CT(ASCP) ? Report ??Date: 04/17/2010 11:31 ? HPV with Pap Test ? Date Ordered: ? 04/17/2010 ? Status: ?? Signed Out ?Date Complete: ? 04/22/2010 ? By: ??System Interface ? Date Reported: ? 04/22/2010 ? Interpretation ? RESULT: Negative for HPV types 16, 18, 31, 33, 35, 39, 45, 51, 52, ? 56, 58, 59, and 68. ? Comments ? Document reviewed and electronically signed by: ? System Interface ? Report date: 04/22/2010 ? By the signature above, the attending physician certifies that he/she has ? personally conducted a gross and/or microscopic examination of the described ? specimens and rendered or confirmed the above diagnosis. ? End of Report ? GUZMAN THOMPSON 04/14/2010 04/16/2010 Bettina L Vernon WHEEL CUTTER PATHOLOGY ORDERABLE S [facility] [address] [place] [address] documented in this encounter Visit Diagnoses Not on filedocumented in this encounter
--- OUTSIDE RECORDS SUMMARY | 2023-12-31 00:24 | XMS_ITS | Encounter Summary ---
Author Organization [facility] Address [address] [place] [address] Care Team Providers Care Block Splitter Operator Name Role Phone Anisha Yarbrough MD Primary Care Provider [phone] Encounter Details Date Type Department Care Team (Late st Contact Info) Description 07/09/2023 Lab Requisition [facility] Pathology & Laboratory Medicine - [facility] [address] [place] [address] Evin Sanchez MD [address] [place] [address], [address] [place], [place] [id number] Encounter for screening for malignant neoplasm of colon Social History Tobacco Use Types Packs/Day Years Used Date Smoking Tobacco: Never Assessed Sex and Gender Information Value Date Recorded Sex Assigned at Not on file Gender Identity Not on file Sexual Orientation Not on file documented as of this encounter Plan of Treatment Not on file documented as of this encounter Procedures Procedure Name Priority Date/Time Associated Diagnosis Comments SURGICAL PATHOLOGY Today 07/09/2023 12 :34 EST Encounter for screening for malignant neoplasm of colon documented in this encounter Results * SURGICAL PATHOLOGY (07/09/2023 12:34 EST) Note to Patient The following pathology results have been interpreted by your pathologist and may be available to you before your health provider has had the opportunity to review them. Please allow time for your provider to receive these results and explore management options, if applicable. 07/12/2023 14:47 [facility] Final Diagnosis A. COLON, POLYP AT 50 CM, BIOPSY: - Tubular adenoma. 07/12/2023 14:47 [facility] Attestation By the signature below, the attending physician certifies that they have 1) personally conducted a gross and/or microscopic examination of the described specimen(s), and/or personally interpreted the results of laboratory testing of the described specimen(s), and 2) personally rendered or confirmed the above diagnosis. 07/12/2023 14:47 [facility] at 1447 Clinical History Screening colonoscopy; polyp; mild diverticulosis 07/12/2023 14:47 [facility] Gross Description A. Received in formalin labelled with proper patient identification (initials P, C) and 1. Polyp @ 50 cm is a single omalley tissue (0.3 x 0.2 x 0.1 cm). Submitted intact in A1. Lacy Alcocer 07/10/2023 13:48 07/12/2023 14:47 [facility] Performing Lab [facility] 07/12/2023 14:47 [facility] Scanned Images 07/12/2023 14:47 [facility] Tissue COLON STRUCTURE / Unknown 07/09/2023 12:34 EST 07/09/2023 22:02 EST Evin Sanchez MD PATHOLOGY ORDERABLES Performing Organization Address City/State/[facility] Co de Phone Number [facility] [address] [place] [address] documented in this encounter Visit Diagnoses Diagnosis Encounter for screening for malignant neoplasm of colon Special screening for malignant neoplasms, colon documented in this encounter Care Teams Block Splitter Operator Relationship Specialty Start Date End Date Anisha Yarbrough MD [address] [place] [address] PCP - General 04/02/20 documented as of this encounter
--- OUTSIDE RECORDS SUMMARY | 2023-12-31 00:24 | XMS_ITS | Encounter Summary ---
[facility] [place] [address] Care Team Providers Care Apn Name Role Phone Bettina Junior APRN Primary Care Provider [phone] Encounter Details Date Type Department Care Team (Late st Contact Info) Description 03/28/2020 Ancillary Procedure [place] [id number] Bettina Junior APRN [address] [place], [place] [id number] Social History Tobacco Use Types Packs/Day Years [...] Comments FILM LIBRARY-STORAGE ONLY US BREAST Routine 03/28/2020 12:00 AM EDT documented in this encounter Results * Film Library Storage Only US Breast (03/28/2020 12:00 AM EDT) Narrative AIDEN - 12/15/2020 9:28 AM EDT This exam is auto-finalizing. It's purpose is for storage only. Bettina Junior APRN IMG FILM LIBRARY ORDERABLES [place], [place] documented in this encounter Visit Diagnoses Not on filedocumented in this encounter Care Teams Apn Relationship Specialty Start Date End Date Bettina Junior APRN [address] [place] [address] PCP - General 05/06/10 07/14/22 documented as of this encounter
--- OUTSIDE RECORDS SUMMARY | 2023-12-31 00:24 | XMS_ITS | Encounter Summary ---
Author Organization [facility] Address [address] [place] [address] Care Team Providers Care Foundry Melt Supervisor Name Role Phone Anisha Yarbrough MD Primary Care Provider [phone] Encounter Details Date Type Department Care Team (Late st Contact Info) Description 07/14/2022 Lab Requisition [facility] Pathology & Laboratory Medicine - [address] [address] Outr Resulting Lab, Provider Social History Tobacco Use Types Packs/Day Years Used Date Smoking Tobacco: Never Assessed Sex and Gender Information Value Date Recorded Sex Assigned at Not on file Gender Identity Not on file Sexual Orientation Not on file documented as of this encounter Plan of Treatment Not on file documented as of this encounter Procedures Procedure Name Priority Date/Time Associated Diagnosis Comments CHLAMYDIA/N. GONORRHOEAE AMPLIFIED NUCLEIC ACID Routine 07/14/2022 11:45 EST documented in this encounter Results * CHLAMYDIA/N. GONORRHOEAE AMPLIFIED RNA (07/14/2022 11:45 EST) Neisseria gonorrhoeae Result Negative Negative 07/16/2022 14:09 EST [facility] Chlamydia trachomatis Result Negative Negative 07/16/2022 14:09 EST [facility] Urine URINE / Unknown 07/14/2022 1 1:45 EST 07/15/2022 18:10 EST Narrative [facility] - 07/16/2022 14:09 EST A first catch urine specimen is acceptable for detection of Gonorrhea and Chlamydia, but might detect up to 10% fewer infections when compared with vaginal and endocervical swab samples. Provider Outr Resulting Lab MICROBIOLOGY - GENERAL ORDERABLES [facility] [address] [place] [address] documented in this encounter Visit Diagnoses Not on filedocumented in this encounter Care Teams Foundry Melt Supervisor Relationship Specialty Start Date End Date Anisha Yarbrough MD [address] [place] [address] PCP - General 04/02/20 documented as of this encounter
--- OUTSIDE RECORDS SUMMARY | 2023-12-31 00:24 | XMS_ITS | Referral Summary ---
Author Organization [facility] Address [address] [place] [address] Care Team Providers Care Psychologist Engineering Name Role Phone Anisha Yarbrough MD Primary Care Provider [phone] Social History Tobacco Use Types Packs/Day Years Used Date Smoking Tobacco: Never Assessed Sex and Gender Information Value Date Recorded Sex Assigned at Not on file Gender Identity Not on file Sexual Orientation Not on file Plan of Treatment Not on file Care Teams Psychologist Engineering Relationship Specialty Start Date End Date Anisha Yarbrough MD [address] [place] [address] PCP - General 04/02/20
--- OUTSIDE RECORDS SUMMARY | 2023-12-31 00:24 | XMS_ITS | Encounter Summary ---
Author Organization [facility] Address [address] [place] [address] Care Team Providers Care Mail Carrier Technician Name Role Phone Anisha Yarbrough MD Primary Care Provider [phone] Encounter Details Date Type Department Care Team (Late st Contact Info) Description 04/02/2020 Lab Requisition [facility] Pathology & Laboratory Medicine - [facility] [address] [place] [address] Sabine Roman MD [address] [place] [id number] Encounter for other general examination Social History [...] Date/Time Associated Diagnosis Comments SURGICAL PATHOLOGY Today 04/02/2020 7: 42 EDT Encounter for other general examination documented in this encounter Results * SURGICAL PATHOLOGY (04/02/2020 7:42 EDT) Final Diagnosis A. BREAST, LEFT, CORE BIOPSY: - Benign breast tissue with nodular fibrocystic change including columnar cell change, columnar cell hyperplasia and dense hyalinized fibrosis. See comment. - Microcalcificatio ns, focal, are identified in association with benign ducts. 04/09/2020 16:01 [facility] Diagnosis Comment The fibrosis is dense and hyalinized and has an irregular interface with adipose tissue. 04/09/2020 16:01 [facility] Attestation There was significant resident/fellow involvement in the diagnostic evaluation of this case. By the signature below, the attending physician certifies that they have personally conducted a gross and/or microscopic examination of the described specimens and rendered or confirmed the above diagnosis. 04/09/2020 16:01 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 Gross Description A. Received in formalin labelled with proper patient identification (initials P, C) and L breast mass core needle bx are 3 yellow and white fibrofatty tissue cores (0.7 cm to 1.2 cm in length, and each 0.2 cm in diameter). Entirely submitted in A1. Time removed from patient: 04/02/2020 07:42 hours Time placed in formalin: 04/02/2020 07:42 hours Time out of formalin: 04/02/2020 24:00 hours JUAN M MIRELES(ASCP) 04/02/2020 18:11 04/09/2020 16:01 [facility] Resident/Daniel w: Senthil Prasad DO 04/09/2020 16:01 [facility] Performing Lab [facility] 04/09/2020 16:01 [facility] Scanned Images 04/09/2020 16:01 [facility] Tissue ENTIRE BREAST / Unknown 04/02/2020 7:42 EDT 04/02/2020 16:31 EDT Sabine Roman MD PATHOLOGY ORDERA BLES [facility] [address] [place] [address] documented in this encounter Visit Diagnoses Diagnosis Encounter for other general examination documented in this encounter Care Teams Mail Carrier Technician Relationship Specialty Start Date End Date Anisha Yarbrough MD [address] [place] [address] PCP - General 04/02/20 documented as of this encounter
--- OUTSIDE RECORDS SUMMARY | 2023-12-31 00:24 | XMS_ITS | Encounter Summary ---
Author Organization [facility] Address [address] [place] [address] Care Team Providers Care Clinical Education Manager Name Role Phone Unavailable Primary Care Provider Unavailabl e Encounter Details Date Type Department Care Team (Late st Contact Info) Description 01/20/2007 Results Only [facility] - [facility] conversion [address] [place] [address] Bettina Tom, SHRUTHI [address] [place] [id number] Social History Tobacco Use Types Packs/Day Years Used Date Smoking Tobacco: Never Assessed Sex and Gender Information Value Date Recorded Sex Assigned at Not on file Gender Identity Not on file Sexual Orientation Not on file documented as of this encounter Plan of Treatment Not on file documented as of this encounter Procedures Procedure Name Priority Date/Time Associated Diagnosis Comments CYTOPATHOLOGY Routine 01/20/2007 0:00 EDT documented in this encounter Results * CYTOPATHOLOGY (01/20/2007 0:00 EDT) Pathology Report: CYTOPATHOLOGY REPORT Reports generated via electronic interface contain original data; however they are lacking the format of the original report. Caution should be taken when reading/interpreti ng unformatted reports. Name: ? MICHELLE TAM ? Accession #: ? [id number] : ? 1975 (Age: 31) ??F ?Collect Date: ? 01/20/2007 Location: ? [facility] ? Receive Date: ? 01/21/2007 Provider: ?BETTINA TOM FUEL ATTENDANT Copy to: ? Specimen/Source: ?ThinPrep Pap Test, Cervix/Endocervix, processed on [employer] ThinPrep Imaging System, with manual evaluation Last Menstrual Period: ? 01/12/07 Other: ? HPVA - HPV testing requested if ASC-US on the current ThinPrep Pap test. ? SPECIMEN ADEQUACY ? Satisfactory for Evaluation - transformation zone component present GENERAL CATEGORIZATION ? Negative for Intraepithelial Lesion or Malignancy ? Document reviewed and electronically signed by: ? Thony Singer, AMOS(ASCP) ? Report Date: ??01/27/2007 07:20 End of Report [facility] 01/20/2007 01/21/2007 Bettina Tom NP PATHOLOGY ORDERABLE S [facility] [address] [place] [address] documented in this encounter Visit Diagnoses Not on filedocumented in this encounter
== END ==
PROVIDERS: PCP Family Medicine; Visit Provider Obstetrics & Gynecology
DX: Z12.39 Encounter for other screening for malignant neoplasm of breast (principal); Z12.31 Encounter for screening mammogram for malignant neoplasm of breast; N60.12 Diffuse cystic mastopathy of left breast; R92.332 Mammographic heterogeneous density, left breast
CPT/HCPCS: 76642; 77063; 77067

== ENCOUNTER 2024-11-01 12:02 | Outpatient (REF) | payer OTHER, SELFPAY ==
--- NOTE | 2024-11-01 11:40 | PAPFT_PTH ---
PATIENT: Michelle Tam LOC: [facility] U#:[id number] AGE/SX: 49/F ROOM: RE11/01/[address]: Fabienne Beach DO : 1975 BED: DIS: 11/01/2024 SPEC #: [id number] RECD: 11/01/24 13:39 STATUS: KENYETTA REQ #: [id number] JAMA: 11/01/24 11:[address]: Fabienne Beach DEPT: [facility] Cytology RECD BY: Ana Maria Dunne ENTERED: 11/01/24 13:40 SP TYPE: PAPFT OTHR DR: Binta Tucker, SHRUTHI Tissues: 1 - CX/ENDOCX FOR PAP SMEARS Procedures: PAP THIN PREP/[facility] Screening HPV DNA PROBE Comments: [id number] (HPV 16 & 18/45)
== END 2024-11-01 12:03 | disposition home or self-care (01) ==
LOC: LBN 12:02
PROVIDERS: PCP Nurse Practitioner Family; Visit Provider Obstetrics & Gynecology
DX: Z12.4 Encounter for screening for malignant neoplasm of cervix (principal)
CPT/HCPCS: 88142; 87624

== ENCOUNTER 2025-01-10 03:03 | Outpatient (CLI) | payer OTHER, SELFPAY ==
--- NOTE | 2025-01-10 07:00 | DI.MAMMO_ITS ---
Exam(s) US BREAST LT LIMITED MG MAMMO DIAGNOSTIC BI EXAM: MG MAMMO DIAGNOSTIC BI CLINICAL HISTORY: annual and 6 month follow up, ABNL MAMMO BOTH BREASTS, R92.8. COMPARISON: MG Unilateral Mammography, Left from 11/18/2004 US LEFT BREAST ULTRASOUND from 11/12/2015 MG Diagnostic Left Mammo from 11/12/2015 US US BREAST LT COMPLETE from 12/31/2023 MG MG MAMMO SCREENING 60 MIN DUR from 12/31/2023 US US BREAST LT COMPLETE from 07/05/2024 US US BREAST LT LIMITED from 01/10/2025 TECHNIQUE: Craniocaudal and mediolateral oblique Full Field Digital Mammography views of left breast with Computer Aided Diagnosis followed by Tomosynthesis and left breast ultrasound. FINDINGS: Mammography/Tomosynthesis: Status post right mastectomy. Masses: Stable areas nodularity throughout the breast. Stable nodule in the spine 6 o'clock position containing biopsy marker. Architectural Distortion: None seen. Microcalcifications: Scattered benign calcifications. No suspicious pleomorphic-type are seen. Skin Thickening/Nipple Retraction: None. Left breast US: Shadowing: No suspicious foci. Cyst: None multiple cysts again noted. The largest cysts are in the 12 and 9 o'clock positions. Solid lesions: Stable circumscribed nodule in the 6 o'clock position, with biopsy marker, measuring 1.8 by 0.7 x 1.7 cm. Stable rounded hypoechoic lesion in the 2 o'clock position 3 cm from the nipple measuring 7 millimeters. Stable nodule in the 3 o'clock position 5 cm from the nipple measuring 11 x 8 by 10 millimeters. Ductal dilation: None. IMPRESSION: 1. Stable breast nodules. Multiple cysts. 2. Recommend mammogram as well as ultrasound in 1 year due to dense tissue in presence of large cysts. BI-RADS Category 2 - Benign Findings Breast Density - Category C - The breast are heterogeneously dense, which may obscure small masses. Breast density Category C or D implies that the patient has dense breast tissue. Dense breast tissue can make it harder to find cancer on a mammogram. Dense breast tissue is also associated with an increased risk of breast cancer. This information about the result of the mammogram report was provided to the patient to raise their awareness. Use this report when you speak with the patient about their risks for breast cancer, which includes their family history. At that time, you may recommend additional screening tests (Ultrasound or MRI) as these tests may add significant information. A negative radiographic report should not delay biopsy if a dominant or clinically suspicious mass is present. Up to ten percent of cancers are not identified on mammography. A negative report may reinforce clinical impression. Adenosis and dense breasts may obscure an underlying neoplasm. False positive reports average 6 to 10%. Patient will receive a letter notifying them of these results.
== END 2025-01-10 03:23 ==
LOC: DI 03:03
PROVIDERS: PCP Nurse Practitioner Family; Visit Provider Obstetrics & Gynecology
DX: R92.8 Other abnormal and inconclusive findings on diagnostic imaging of breast (principal); Z12.31 Encounter for screening mammogram for malignant neoplasm of breast
CPT/HCPCS: 76642; 77062; 77066; G0279

== ENCOUNTER 2025-01-10 04:02 | Outpatient (CLI) | payer OTHER, SELFPAY ==
[2025-01-10 10:14] LABS: Calculated LDL 100 mg/dL (<100); Cholesterol 187 mg/dL (<200); HDL Cholesterol 77 mg/dL (>or=50); Triglyceride 50 mg/dL (<150)
== END 2025-01-10 04:03 | disposition home or self-care (01) ==
LOC: LBO 04:02
PROVIDERS: PCP Nurse Practitioner Family; Visit Provider Obstetrics & Gynecology
DX: Z01.419 Encounter for gynecological examination (general) (routine) without abnormal findings (principal)
CPT/HCPCS: 36415; 80061